=== PATIENT | female | born 1985 | race African-American/Black ===

== ENCOUNTER 2020-01-14 13:14 | Emergency (ER) | payer OTHER ==
[2020-01-14 13:23] VITALS: BMI 18.8
[2020-01-14] MEDS ORDERED: ACETAMINOPHEN 1000 MG/100 ML VIAL (NON FORMULARY) IVPB ONE (14:05)
[2020-01-14] MEDS ORDERED: ONDANSETRON 4 MG/2 ML VIAL IVPUSH ONE (14:05)
[2020-01-14] MEDS ORDERED: SODIUM CHLORIDE 1,000 ML IV STA ×2 (14:05→17:19)
[2020-01-14] MEDS ORDERED: ACETAMINOPHEN INJECTION 100 ML IVPB ONE ×2 (14:10→15:59)
--- NOTE | 2020-01-14 14:26 | PDOC ---
History of Present Illness - General Chief Complaint: Pain Stated Complaint: ABD PAIN Time Seen by Provider: 01/14/20 13:48 Past History - Medical History Allergies/Adverse Reactions: Allergies Allergy/AdvReac Type Severity Reaction Status Date / Time ciprofloxacin [From Cipro] Allergy Severe Swelling Verified 01/17/20 10:09 Home Medications: Ambulatory Orders NK [No Known Home Medication] 01/16/20 COPD: No - Reproductive History Is Patient Now?: No - Psycho-Social/Smoking History Smoking History: Current every day smoker Number of Cigarettes Smoked Daily: 5 Information on smoking cessation initiated: Yes - Substance Abuse Hx (Audit-C & DAST Scrn) How often the patient has a drink containing alcohol: Never Score: In Men: 4 or > Positive; In Women: 3 or > Positive: 0 Screen Result (Pos requires Nsg. Audit-10AR): Negative In the last yr the pt used illegal drug/Rx for NonMed reason: No Score: Yes response is considered Positive: 0 Screen Result (Positive result requires Nsg. DAST-10): Negative Review of Systems - Review of Systems Able to Perform ROS?: Yes Comments:: 01/14/20 21:30 CONSTITUTIONAL: Absent: fever, chills, diaphoresis, generalized weakness, malaise, loss of appetite HEENT: Absent: rhinorrhea, nasal congestion, throat pain, throat swelling, difficulty swallowing, mouth swelling, ear pain, eye pain, visual Changes CARDIOVASCULAR: Absent: chest pain, loss of consciousness, palpitations, irregular heart rate, peripheral edema RESPIRATORY: Absent: cough, shortness of breath, dyspnea with exertion, orthopnea, wheezing, stridor, hemoptysis GASTROINTESTINAL: Present: Abdominal pain, nausea, vomiting and diarrhea Absent: abdominal distension, , constipation, melena, hematochezia GENITOURINARY: Absent: dysuria, frequency, urgency, hesitancy, hematuria, flank pain, genital pain MUSCULOSKELETAL: Absent: myalgia, arthralgia, joint swelling SKIN: Absent: rash, itching, pallor HEMATOLOGIC/IMMUNOLOGIC: Absent: easy bleeding, easy bruising, lymphadenopathy, frequent infections ENDOCRINE: Absent: unexplained weight gain, unexplained weight loss, heat intolerance, cold intolerance NEUROLOGIC: Absent: headache, focal weakness or paresthesias, dizziness, unsteady gait, seizure, mental status changes, bladder or bowel incontinence PSYCHIATRIC: Absent: anxiety, depression, suicidal or homicidal ideation, hallucinations. Is the patient limited Sudanese proficient: No *Physical Exam - Vital Signs Last Vital Signs Temp Pulse Resp BP Pulse Ox 98.5 F 110 H 19 127/72 96 01/14/20 13:17 01/14/20 13:17 01/14/20 13:17 01/14/20 13:17 01/14/20 13:17 - Physical Exam 01/14/20 21:31 GENERAL: Well developed, well nourished. Awake and alert. No acute distress. HEENT: Normocephalic, atraumatic. PERRLA, EOMI. No conjunctival pallor. Sclera are non- icteric. Moist mucous membranes. Oropharynx is clear. NECK: Supple. Full ROM. No JVD. Carotid pulses 2+ and symmetric, without bruits. No thyromegaly. No lymphadenopathy. CARDIOVASCULAR: Regular rate and rhythm. No murmurs, rubs, or gallops. Distal pulses are 2+ and symmetric. PULMONARY: No evidence of respiratory distress. Lungs clear to auscultation bilaterally. No wheezing, rales or rhonchi. ABDOMINAL: Tenderness palpation of the right lower quadrant, suprapubic area with other diffuse abdominal tenderness. Negative Rovsing sign. Soft. Non-tender. Non- distended. No rebound or guarding. No organomegaly. Normoactive bowel sounds. MUSCULOSKELETAL Normal range of motion at all joints. No bony deformities or tenderness. No CVA tenderness. EXTREMITIES: No cyanosis. No clubbing. No edema. No calf tenderness. SKIN: Warm and dry. Normal capillary refill. No rashes. No jaundice. NEUROLOGICAL: Alert, awake, appropriate. Cranial nerves 2-12 intact. No deficits to light touch and temperature in face, upper extremities and lower extremities. No motor deficits in the in face, upper extremities and lower extremities. Normoreflexic in the upper and lower extremities. Normal speech. Toes are down-going bilaterally. Gait is normal without ataxia. PSYCHIATRIC: Cooperative. Good eye contact. Appropriate mood and affect. ED Treatment Course - LABORATORY CBC & Chemistry Diagram: 01/14/20 15:17 01/14/20 15:17 Medical Decision Making - Medical Decision Making 01/14/20 17:27 Patient presents the ER with lower abdominal pain, nausea and diarrhea for the past 4 days. States she was seen at [facility] yesterday and told she had a UTI. She states that this morning her abdominal pain got worse and she was vomiting so she came to the ER for evaluation. She states that she tried taking Cipro at home for her presumed UTI however her face began to swell so she stopped taking it and took a Benadryl with relief of symptoms. A/P: Right lower quadrant pain Broad differential diagnosis including UTI versus Shankar versus appendicitis. Given recent CT scan, will start with ultrasound of the kidney and bladder to rule out Shankar given she had a diagnosis of UTI last night. Scans requested from [facility]. Basic labs repeated. Leukocytosis to 22. Symptoms relieved with offer meds and Zofran. 01/14/20 21:35 Labs received from [facility]. Patient had a leukocytosis 22 last night as well this is unchanged. CT scan reveals equivocal appendicitis? Repeat ultrasound shows no acute kidney pathology. Concern for appendicitis at this time order rescan to rule out appendicitis. The patient is clinically sober, free from distracting injury, appears to have intact insight and judgment and reason and in my opinion has the capacity to make decisions. Patient has a leukocytosis to 22, RLQ pain on exam with questionable equivocal reading for appendicitis at [facility] yesterday. Asked patient to stay for a rescan however patient states she has to go home to get her children as she does not feel safe having left them with her brother. Advised that she has a probable appendicitis and could become severely ill, septic or even by leaving the hospital. She states that she understands and states that she will come back tomorrow at 9 for a repeat scan. Explained to patient if she should have any change in her symptoms return to the ER immediat adwoa Discharge - Discharge Information Problems reviewed: Yes Clinical Impression/Diagnosis: Abdominal pain Qualifiers: Abdominal location: right lower quadrant Qualified Code(s): R10.31 - Right lower quadrant pain Disposition: AGAINST MEDICAL ADVICE - Follow up/Referral - Patient Discharge Instructions - Post Discharge Activity
[2020-01-14 15:24] LABS: BASO % 0.3 % (0-2.0); EOS % 0.7 % (0-4.5); HEMATOCRIT 47.7 % (32.4-45.2); HEMOGLOBIN 15.8 GM/dL (10.7-15.3); LYMPH % 3.7 % (8-40); MCH 32.8 pg (25.7-33.7); MCHC 33.2 g/dl (32.0-36.0); MEAN CELL VOLUME 98.9 fl (80-96); MEAN PLT VOLUME 8.8 fl (7.5-11.1); MONO % 3.8 % (3.8-10.2); NEUT % 91.5 % (42.8-82.8); PLATELET COUNT 193 K/MM3 (134-434); RBC 4.82 M/mm3 (3.60-5.2); RDW 12.8 % (11.6-15.6); WHITE BLOOD COUNT 22.2 K/mm3 (4.0-10.0)
[2020-01-14 15:47] LABS: ANISOCYTOSIS 0; MACROCYTOSIS 0; PLATELET ESTIMATE NORMAL
[2020-01-14 15:52] LABS: ALBUMIN 3.4 g/dl (3.4-5.0); BILIRUBIN,TOTAL 0.6 mg/dL (0.2-1); BLOOD UREA NITROGEN 22.5 mg/dL (7-18); CALCIUM 9.5 mg/dL (8.5-10.1); CREATININE 1.3 mg/dL (0.55-1.3); POTASSIUM 4.4 mmol/L (3.5-5.1); TOT PROT 8.5 g/dl (6.4-8.2)
[2020-01-14 16:39] LABS: EPI CELLS >36 /uL (0-25.1); HCG,QUALITATIVE URINE Negative; HYALINE CASTS 36 /uL (0-3.1); URINE APPEARANCE TURBID; URINE BACTERIA 987 /uL (0-1359); URINE BILIRUBIN 2+ (NEGATIVE); URINE COLOR DK YELLOW; URINE GLUCOSE (UA) NEGATIVE (NEGATIVE); URINE KETONE 1+ (NEGATIVE); URINE LEUK ESTERASE NEGATIVE (NEGATIVE); URINE NITRITE NEGATIVE (NEGATIVE); URINE PROTEIN 2+ (NEGATIVE); URINE WBC 40 /uL (0-25.8)
[2020-01-14 17:05] LABS: URINE RBC 19.1 /uL (0-23.9)
[2020-01-14 19:40] VITALS: BP 122/68; PULSE 86; TEMP 97.8
== END 2020-01-14 20:50 | disposition left against medical advice (07) ==
LOC: JER 13:14
PROC: 3E033NZ Introduction of Analgesics, Hypnotics, Sedatives into Peripheral Vein, Percutaneous Approach (ICD-10-PCS; principal; 2020-01-14)
PROC: 3E033GC Introduction of Other Therapeutic Substance into Peripheral Vein, Percutaneous Approach (ICD-10-PCS; 2020-01-14)
PROC: 3E0337Z Introduction of Electrolytic and Water Balance Substance into Peripheral Vein, Percutaneous Approach (ICD-10-PCS; 2020-01-14)
DX: R10.9 Unspecified abdominal pain (principal)
CPT/HCPCS: 36415; 76775-TC; 76856-TC; 80053; 81003; 83690; 84703; 85025; 87086; 87491; 87591; 96361; 96374; 96375; 99285-25; J0131

== ENCOUNTER 2020-01-16 12:53 | Inpatient (IN) | payer OTHER ==
--- NOTE | 2020-01-16 13:09 | PDOC ---
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
[2020-01-16] MEDS ORDERED: ACETAMINOPHEN 1000 MG/100 ML VIAL (NON FORMULARY) IVPB ONE (13:10)
[2020-01-16] MEDS ORDERED: SODIUM CHLORIDE 1,000 ML IV STA ×2 (13:10→18:34)
--- NOTE | 2020-01-16 13:34 | PDOC ---
History of Present Illness - General Chief Complaint: Pain, Acute Stated Complaint: LWR ABD PAIN Time Seen by Provider: 01/16/20 13:06 History Source: Patient Exam Limitations: No Limitations - History of Present Illness Initial Comments: 01/16/20 13:28 HPI: 34 yo F presenting with RLQ pain, fever, and nausea, seen here 2 days ago and left AMA due to child welfare specialist returning for continued symptoms. Denies fevers or chills, reduced PO intake. Reporting continued RLQ and suprapubic pain. Pain is sharp, constant, non-positional, and had been present for 1 week with consistent severity since last . Denies chest pain, shortness of breath, sore throat. LMP Dec 31, no history of polyps fibroids or cysts, sexually active with one partner, uses condoms consistently. Denies vaginal bleeding, discharge, or pain. Also denies diarrhea, constipation, bloody or dark stools. No dysuria, frequency, foul odors or funny colors. All: Ciprofloxacin Meds: Per chart Past History - Travel History Traveled outside of the country in the last 30 days: No Close contact w/someone who was outside of country & ill: No - Medical History Allergies/Adverse Reactions: Allergies Allergy/AdvReac Type Severity Reaction Status Date / Time ciprofloxacin [From Cipro] Allergy Severe Swelling Verified 01/16/20 14:01 Home Medications: Ambulatory Orders NK [No Known Home Medication] 01/16/20 Asthma: Yes COPD: No - Reproductive History Is Patient Now?: No - Immunization History Immunization Up to Date: Yes - Psycho-Social/Smoking History Smoking History: Current every day smoker Number of Cigarettes Smoked Daily: 5 Information on smoking cessation initiated: No - Substance Abuse Hx (Audit-C & DAST Scrn) How often the patient has a drink containing alcohol: Never Score: In Men: 4 or > Positive; In Women: 3 or > Positive: 0 Screen Result (Pos requires Nsg. Audit-10AR): Negative In the last yr the pt used illegal drug/Rx for NonMed reason: No Score: Yes response is considered Positive: 0 Screen Result (Positive result requires Nsg. DAST-10): Negative Review of Systems - Review of Systems Able to Perform ROS?: Yes Is the patient limited Persian proficient: Yes Constitutional: No: Chills, Diaphoresis, Fever, Weakness HEENTM: No: Recent change in vision, Hearing Loss Respiratory: No: Shortness of Breath Cardiac (ROS): No: Chest Pain, Edema, Irregular Heart Rate, Lightheadedness, Palpitations, Syncope, Chest Tightness ABD/GI: No: Abdominal Distended, Abd. Pain w/ defecation, Constipated, Diarrhea, Nausea, Vomiting : No: Burning, Dysuria, Frequency Musculoskeletal: No: Back Pain, Muscle Pain, Muscle Weakness Integumentary: No: Bruising, Pruritus, Rash Neurological: No: Headache, Numbness, Tingling, Weakness Psychiatric: No: Anxiety, Depression, Stressors, Change in Appetite Endocrine: No: Increased Thirst, Increased Urine, Change in Weight Hematologic/Lymphatic: No: Anemia, Blood Clots, Easy Bleeding All Other Systems: Reviewed and Negative *Physical Exam - Vital Signs Last Vital Signs Temp Pulse Resp BP Pulse Ox 98.7 F 102 H 18 149/100 100 01/16/20 13:08 01/16/20 13:08 01/16/20 13:08 01/16/20 13:08 01/16/20 13:08 - Physical Exam 01/16/20 13:30 Vitals reviewed, notable for mild htn and tachycardia to 100s GEN: Well appearing, appears stated age, NAD, comfortable. AAOx3. HEENT: NCAT, EOMI, PERRL. Sclera anicteric, noninjected. No facial asymmetry. Moist mucous membranes. Normal voice. Trachea midline. CV: RRR, S1/S2, no murmurs / rubs / gallops appreciated. LUNG: CTABL, normal work of breathing. No wheezes, rales, rhonchi. No cough. Speaking full sentences. GI: Soft, TTP RLQ and suprapubically, non-distended, +BS, no guarding, no rebound. +[place]. No masses. EXTREMITIES: 2+ distal pulses. No clubbing / cyanosis / edema. No gross deformity in any extremity. SKIN: Warm, dry, no rashes appreciated, non-jaundiced. PSYCH: Normal mood and affect. Cooperative and appropriate. NEURO: CN grossly intact. Moving all extremities well. Normal strength and sensation grossly. ED Treatment Course - LABORATORY CBC & Chemistry Diagram: 01/16/20 13:40 01/16/20 13:40 Medical Decision Making - Medical Decision Making 01/16/20 13:33 34 yo F presenting with RLQ pain, fever, and nausea, seen here 2 days ago and left AMA due to child welfare specialist returning for continued symptoms. History notable for 1 week of abdominal pain with nausea. Exam notable for stable vitals, RLQ and suprapubic tenderness to palpation. Concerning for appendicitis, diverticulitis, colitis, ureterolithiasis, UTI/Pyelonephritis. - CBC, CMP, Lactate, Coags, T&S, UA, HCG - CTAP - IVF - Ofirmev 1g - NPO (attempted to eat at 10AM, vomited) 01/16/20 15:40 - Improving leukocytosis - Otherwise unremarkable labs - Morphine 2mg - Zofran 4mg 01/16/20 16:44 - CT results in short: small bowel enteritis, colitis, cannot appreciate appendix, 3x1.4x1.1cm area of loculated fluid ?abscess, small volume free fluid in hepatorenal fossa, mesenteric soft tissue stranding within the pelvis ventral ly, diffuse bladder wall thickening, 2.72 left adnexal cyst. - IVF NS @125cc/hr - Zosyn - Microblog sent to on-call surgeon Dr. Diego 01/16/20 17:25 - Spoke with Dr. Diego - IV ABX, IVF, NPO, Admit Med/Surg - Requests repeat CT abdomen / pelvis with oral contrast - Microblog sent to hospitalist team Dispo: Med/Surg Discharge - Discharge Information Problems reviewed: Yes Clinical Impression/Diagnosis: Colitis, Enteritis, Intra-abdominal abscess Abdominal pain Qualifiers: Abdominal location: right lower quadrant Qualified Code(s): R10.31 - Right lower quadrant pain Condition: Stable - Admission Yes - Follow up/Referral - Patient Discharge Instructions - Post Discharge Activity
[2020-01-16] MEDS ORDERED: ACETAMINOPHEN INJECTION 100 ML IVPB ONE (13:49)
[2020-01-16] MEDS ORDERED: morphine CARPU-JECT 2 MG/1 ML DISP.SYRIN IVPUSH ONE (13:54)
[2020-01-16] MEDS ORDERED: ONDANSETRON 4 MG/2 ML VIAL IVPUSH ONE (13:54)
--- NOTE | 2020-01-16 13:54 | PDOC ---
Attending Attestation - Resident Resident Name: Diony Zapata - ED Attending Attestation I have performed the following: I have examined & evaluated the patient, The case was reviewed & discussed with the resident, I agree w/resident's findings & plan - HPI HPI: 01/16/20 13:51 Healthy 34-year-old female presents for persistent lower abdominal pain. Patient was initially seen on 01/12 at [facility] ER, diagnosed with UTI and discharged on Cipro, of which she only took 1 dose and had allergic reaction with facial swelling. Abdominal pain persisted, was seen here on 01/13 and upon review of CT from [facility], appendicitis was equivocal, so repeat CT was recommended but patient had to leave AMA. Patient now returns with persistent and worsening abdominal pain, sharp and localized to the right lower quadrant/suprapubic area, positive associated vomiting and diarrhea, no urinary or vaginal complaints. No history of surgeries, no history of ovarian cysts, LMP was 12/31, monogamous with use of condoms, no history of STI - Physicial Exam PE: 01/16/20 13:52 Afebrile, slight tachycardia Alert seated in stretcher, uncomfortable and in pain No jaundice or pallor, dry mucosa Heart is regular, lungs are clear Abdomen is soft/nondistended. There is tenderness with guarding in the suprapubic and right lower quadrant region, no CVA tenderness, no palpable hernias or masses. - Medical Decision Making 01/16/20 13:53 34-year-old female with progressive right lower quadrant/lower abdominal pain over the last 4 to 5 days, equivocal appendicitis on prior CT and leukocytosis on previous labs, now with peritoneal findings and right lower quadrant/lower abdomen. Presentation concerning for appendicitis, rule out [employer]OR or etiology. Labs, urinalysis CT of the abdomen and pelvis with IV contrast IV fluids, pain control, nausea control Reassess Discharge - Discharge Information Problems reviewed: Yes Clinical Impression/Diagnosis: Abdominal pain Qualifiers: Abdominal location: right lower quadrant Qualified Code(s): R10.31 - Right lower quadrant pain - Follow up/Referral - Patient Discharge Instructions - Post Discharge Activity
[2020-01-16 14:03] LABS: BASO % 0.6 % (0-2.0); EOS % 1.6 % (0-4.5); HEMATOCRIT 43.5 % (32.4-45.2); HEMOGLOBIN 14.9 GM/dL (10.7-15.3); LYMPH % 14.2 % (8-40); MCH 33.7 pg (25.7-33.7); MCHC 34.2 g/dl (32.0-36.0); MEAN CELL VOLUME 98.5 fl (80-96); MEAN PLT VOLUME 8.4 fl (7.5-11.1); MONO % 14.6 % (3.8-10.2); PLATELET COUNT 199 K/MM3 (134-434); RBC 4.41 M/mm3 (3.60-5.2); RDW 12.5 % (11.6-15.6); WHITE BLOOD COUNT 10.5 K/mm3 (4.0-10.0)
[2020-01-16] MEDS ORDERED: MORPHINE SULFATE 2 MG/ML VIAL ONE (14:11)
[2020-01-16 14:38] LABS: BILIRUBIN,TOTAL 0.6 mg/dL (0.2-1); BLOOD UREA NITROGEN 11.5 mg/dL (7-18); CALCIUM 9.1 mg/dL (8.5-10.1); CREATININE 0.7 mg/dL (0.55-1.3); MAGNESIUM 1.7 mg/dL (1.8-2.4); POTASSIUM 4.1 mmol/L (3.5-5.1); TOT PROT 7.3 g/dl (6.4-8.2)
[2020-01-16 15:20] LABS: ANISOCYTOSIS 0; MACROCYTOSIS 0; PLATELET ESTIMATE NORMAL
[2020-01-16 15:37] LABS: EPI CELLS >36 /uL (0-25.1); HYALINE CASTS 10 /uL (0-3.1); PH,URINE 6.5 (5.0-8.0); URINE APPEARANCE CLEAR; URINE BACTERIA 213 /uL (0-1359); URINE BILIRUBIN NEGATIVE (NEGATIVE); URINE COLOR DK YELLOW; URINE GLUCOSE (UA) NEGATIVE (NEGATIVE); URINE KETONE TRACE (NEGATIVE); URINE LEUK ESTERASE TRACE (NEGATIVE); URINE NITRITE NEGATIVE (NEGATIVE); URINE PROTEIN 1+ (NEGATIVE); URINE RBC 23 /uL (0-23.9); URINE UROBILINOGEN 0.2 mg/dL (0.2-1.0); URINE WBC 46 /uL (0-25.8)
[2020-01-16 15:49] LABS: HCG,QUALITATIVE URINE Negative
[2020-01-16] MEDS ORDERED: PIPERACILLIN/TAZOB 3.375 GM 3.375 GM in DEXTROSE 5%-WATER - 50 ML IVPB ONE (16:36)
[2020-01-16] MEDS: SODIUM CHLORIDE 1,000 ML IV SCH (17:02)
[2020-01-16] MEDS ORDERED: PIPERACILLIN/TAZOB 3.375 GM 3.375 GM/50 ML BAG IVPB ONE (17:06)
[2020-01-16] MEDS ORDERED: MORPHINE SULFATE 2 MG/ML VIAL IVPUSH PRN (18:35)
[2020-01-16] MEDS ORDERED: PIPERACILLIN/TAZOB 4.5 GM 4.5 GM in DEXTROSE 5%-WATER 100 ML IVPB SCH (18:45)
--- NOTE | 2020-01-16 18:53 | HP ---
Admitting History and Physical - Past Medical History ...LMP: 01/01/20 ...: No - Smoking History Smoking history: Current every day smoker Aproximately how many cigarettes per day: 5 Home Medications - Allergies Allergies/Adverse Reactions: Allergies Allergy/AdvReac Type Severity Reaction Status Date / Time ciprofloxacin [From Cipro] Allergy Severe Swelling Verified 01/16/20 14:01 - Home Medications Home Medications: Ambulatory Orders NK [No Known Home Medication] 01/16/20 Physical Examination Vital Signs: Vital Signs Temperature 98.7 F 01/16/20 13:08 Pulse Rate 102 H 01/16/20 13:08 Respiratory Rate 18 01/16/20 13:08 Blood Pressure 149/100 01/16/20 13:08 O2 Sat by Pulse Oximetry (%) 98 01/16/20 18:21 Labs: CBC, BMP 01/16/20 13:40 01/16/20 13:40
--- NOTE | 2020-01-16 19:32 | PN ---
Teaching Attending Note Name of Resident: Delroy Floyd ATTENDING PHYSICIAN STATEMENT I saw and evaluated the patient. I reviewed the resident's note and discussed the case with the resident. I agree with the resident's findings and plan as documented. SUBJECTIVE: Patient is a 34-year-old woman with no reported PMH of Tobacco use who presents with persistent lower abdominal pain for 4 days. Patient was initially seen on 01/13/20 at [facility] ER, diagnosed with UTI and discharged on Cipro, of which she only took 1 dose and had allergic reaction with facial swelling. Abdominal pain persisted, was seen here on 01/14/20 and upon review of CT from [facility], appendicitis was equivocal, so repeat CT was recommended but patient had to leave AMA. Patient now returns with persistent and worsening abdominal pain, sharp and localized to the right lower quadrant/suprapubic area, positive associated vomiting and diarrhea, no urinary or vaginal complaints. No history of surgeries, no history of ovarian cysts, LMP was 12/31, monogamous with use of condoms, no history of STI. Patient denies chest pain, shortness of breath, headache, palpitations, dizziness, fever, chills, nausea, vomiting, constipation, dysuria, frequency, urgency, melena, hematochezia or hematuria. Denies alcohol, tobacco or illicit drug use. No sick contacts or recent travels. Family history - mother had ID. OBJECTIVE: Alert Vital Signs Period Temp Pulse Resp BP Sys/Gonzales Pulse Ox Last 24 Hr 98.7 F 65-102 18-20 98-149/60-100 98-100 HEENT: No Jaundice, eye redness or discharge, PERRLA, EOMI. Normocephalic, atraumatic. External ears are normal and hearing is grossly intact. No nasal discharge. Neck: Supple, nontender. No palpable adenopathy or thyromegaly. No JVD Chest: Good effort. Clear to auscultation and percussion. Heart: Regular. No S3, rub or murmur Abdomen: Not distended, soft, Suprapubic and RLQ tenderness and no HSM. No r ebound or guarding. Normal bowel sounds. Ext: Peripheral pulses intact. No leg edema. Skin: Warm and dry. No petechiae, rash or ecchymosis. Neuro: Alert. Oriented x3. CN 2-12 grossly intact. Sensation grossly intact in all four extremities and DTR are symmetric. Psych: Appropriate mood and affect. Good insight. Home Medications Medication Instructions Recorded NK [No Known Home Medication] 01/16/20 Abnormal Lab Results 01/16/20 01/16/20 01/16/20 13:40 13:40 15:15 WBC 10.5 H MCV 98.5 H Monocytes % 14.6 H D Monocytes % (Manual) 17 H D Sodium 134 L Anion Gap 7 L Magnesium 1.7 L Albumin 3.0 L Urine Protein 1+ H Urine Ketones Trace H Current Medications Generic Name Dose Route Start Last Admin Trade Name Freq PRN Reason Stop Dose Admin Sodium Chloride 1,000 mls @ 125 mls/hr 01/16/20 16:45 01/16/20 17:02 Normal Saline - IV 125 mls/hr ASDIR DAVON Administration Piperacillin Sod/Tazobactam 100 mls @ 200 mls/hr 01/16/20 18:45 Sod 4.5 gm/ Dextrose IVPB Q8H-IV DAVON Protocol Famotidine/Sodium Chloride 20 mg in 50 mls @ 100 mls/hr 01/16/20 22:00 Pepcid 20 Mg Premixed Ivpb - IVPB BID DAVON Piperacillin Sod/Tazobactam 100 mls @ 200 mls/hr 01/17/20 02:00 Sod 4.5 gm/ Dextrose IVPB 01/17/20 18:29 Q8H-IV DAVON Protocol Morphine Sulfate 2 mg 01/16/20 18:35 Morphine Sulfate IVPUSH Q6H PRN PAIN LEVEL 6-10 Ondansetron HCl 4 mg 01/16/20 18:34 Zofran Injection IVPUSH Q6H PRN NAUSEA ASSESSMENT AND PLAN: 1. Colitis/Enteritis and ?Pelvic abscess - CT abdomen/pelvis with IV contrast shows evidence of enteritis, colitis and possible right lower pelvic abscess. Sepsis workup done, patient NPO and started on IV Zosyn and IV NS. STI panel was negative. Will consult GI, Surgery and [facility]. Getting IV MgSO4. Stool for culture, Ova&Parasites, C. Difficile toxin and Novovirus if diarrhea persists. Viral testing for COVID-19 ordered and patient placed on airborne, droplet and contact isolation. EKG shows NSR at 72/minute and QTc [address]-T wave changes. Initial troponin is negative. 2. Hypoalbuminemia - Possibly due to combined effects of malnutrition and inflammation associated with comorbid conditions. Will ensure adequate dietary protein intake and also consult improvement analyst. 3. Tobacco Use Counseled on risks associated with tobacco use. We will provide patient all the necessary assistance to facilitate smoking cessation and prescribe Nicotine patch. 4. DVT prophylaxis - Lovenox 40 mg SQ q 24 hours. 5. Advance directives - Full code
[2020-01-16] MEDS ORDERED: FAMOTIDINE 20 MG/50 ML IVPB 20 MG/50 ML MG IVPB ONE ×2 (22:59→23:08)
[2020-01-17] MEDS ORDERED: MORPHINE SULFATE 2 MG/ML VIAL IVPUSH ONE (00:31)
--- NOTE | 2020-01-17 00:49 | HP ---
CHIEF COMPLAINT: lower abd pain w/a NVD PCP: HISTORY OF PRESENT ILLNESS: 35F w/ no pmh presents to [facility] w/ complaint of 6days(since ~Thursday) of severe cramping diffuse lower abdominal abd. Has associated nausea, vomiting. Has vomiting immediately after eating. Had mild bloody streaks on Thursday, which has since resolved. Feels thirsty, and has appetite. Has daily diarrhea. 5days prior, pain migrated from lower abd to to RLQ. Denies fever, chills, CP, burning pain with urination. Pt was seen at [facility] 2day prior with similiar RLQ abdominal pain, but declined admission d/t to the need to arrange childcare. No history of diffuse crampy diarrhea. Denies h/o EGD, colonoscopy. No IBD or colorectal CA in family. Sexually active, uses condoms consistently. Denies abnormal vaginal discharge. LMP 01/01/20. Menstruation starts every 14-16th of the month. ER course was notable for: -Tmax 98.7F, HR 102 --> 65, 122/68 -WBC 22.2 --> 10.5 -Cr 1.3 -->0.7 -Mg2+ 1.7 -McBurneys Pt positive -US kidneys(01/14/20): essentially negative study. No evidence of hydronephrosis, renal masses, renal calculi -CT A/P(01/16/20): several small bowel loops within the central and right lateral thirds of the pelvis demonstrate concentric continuous wall thickening suggestive of enteritis which may be infectious or inflammatory in nature. Follow-up CT w/ oral contrast may be considered. There is also possible subtle concentric rectosigmoid colonic wall thickening -?associated acute colitis. Area of loculated fluid(3 x 1.4 x1.1cm) is seen within the Right lower pelvis posteriorly with possible rim enhancement. Could be due to a small abscess. Small amount of pelvic free fluid seen, as well as a small amount of free fluid within the hepatorenal fossa. Mesensteric soft tissue stranding is seen within the pelvis ventrally consistent with inflammatory change. There is apparent diffuse urinary bladder wall thickening which may be on the basis of acute chronic cystitis. 2.72cm Left adnexal cyst. -Diego: ivf, abx, NPO; rpt CT A/P w/ oral contrast -NS 1L, zosyn 3.375, zofran, ofirmev, morphine 2mg Recent Travel: denies PAST MEDICAL HISTORY: none PAST SURGICAL HISTORY: none Social History: Sm[employer] daily. former 2ppd(2016 -2019). 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 two children: 9y/o, 14y/0 Allergies ciprofloxacin [From Cipro] Allergy (Severe, Verified 01/16/20 14:01) Swelling HOME MEDICATIONS: Home Medications Medication Instructions Recorded NK [No Known Home Medication] 01/16/20 REVIEW OF SYSTEMS CONSTITUTIONAL: Absent: fever, chills, diaphoresis, generalized weakness, malaise, loss of appetite, weight change HEENT: Absent: rhinorrhea, nasal congestion, throat pain, throat swelling, difficulty swallowing, mouth swelling, ear pain, eye pain, visual changes CARDIOVASCULAR: Absent: chest pain, syncope, palpitations, irregular heart rate, lightheadedness, peripheral edema RESPIRATORY: Absent: cough, shortness of breath, dyspnea with exertion, orthopnea, wheezing, stridor, hemoptysis GASTROINTESTINAL: lower and RLQ abdominal pain, nausea, vomiting, diarrhea, Absent: abdominal distension, constipation, melena, hematochezia GENITOURINARY: Absent: dysuria, frequency, urgency, hesitancy, hematuria, flank pain, genital pain MUSCULOSKELETAL: Absent: myalgia, arthralgia, joint swelling, back pain, neck pain SKIN: Absent: rash, itching, pallor HEMATOLOGIC/IMMUNOLOGIC: Absent: easy bleeding, easy bruising, lymphadenopathy, frequent infections ENDOCRINE: Absent: unexplained weight gain, unexplained weight loss, heat intolerance, cold intolerance NEUROLOGIC: Absent: headache, focal weakness or paresthesias, dizziness, unsteady gait, seizure, mental status changes, bladder or bowel incontinence PSYCHIATRIC: Absent: anxiety, depression, suicidal or homicidal ideation, hallucinations. PHYSICAL EXAMINATION Vital Signs - 24 hr 01/16/20 01/16/20 01/16/20 13:08 18:21 18:58 Temperature 98.7 F Pulse Rate 102 H Pulse Rate [ 65 Radial] Respiratory 18 20 Rate Blood Pressure 149/100 Blood Pressure 98/60 [Right Arm] O2 Sat by Pulse 100 98 100 Oximetry (%) GENERAL: Awake, alert, and fully oriented, in mild distress. Thin-appearing HEAD: Normal with no signs of trauma. EYES: sclera anicteric, conjunctiva clear. No lid lag. EARS, NOSE, THROAT: Ears normal, nares patent, oropharynx clear without exudates. Moist mucous membranes. NECK: Normal range of motion, supple without lymphadenopathy, JVD, or masses. LUNGS: Breath sounds equal, clear to auscultation bilaterally. No wheezes, and no crackles. No accessory muscle use. HEART: Regular rate and rhythm, normal S1 and S2 without murmur, rub or gallop. ABDOMEN: Soft, not distended, hypoactive bowel sounds, TTP of suprapubic region, +McBurney's, neg Rovsing's, negative rebound MUSCULOSKELETAL: Normal range of motion at all joints. No bony deformities or tenderness. UPPER EXTREMITIES: 2+ pulses, warm, well-perfused. No cyanosis. No clubbing. No peripheral edema. LOWER EXTREMITIES: 2+ pulses, warm, well-perfused. No calf tenderness. No peripheral edema. NEUROLOGICAL: Normal speech. Moving upper and lower extremities w/o issues. No issues with gait SKIN: Warm, dry, normal turgor, no rashes or lesions noted, normal capillary refill. Laboratory Results - last 24 hr 01/16/20 01/16/20 01/16/20 13:40 13:40 13:40 WBC 10.5 H RBC 4.41 Hgb 14.9 Hct 43.5 MCV 98.5 H MCH 33.7 MCHC 34.2 RDW 12.5 Plt Count 199 MPV 8.4 Absolute Neuts (auto) 7.2 Neutrophils % 69.0 D Neutrophils % (Manual) 64.7 Band Neutrophils % 0.0 Lymphocytes % 14.2 D Lymphocytes % (Manual) 12.7 D Monocytes % 14.6 H D Monocytes % (Manual) 17 H D Eosinophils % 1.6 D Eosinophils % (Manual) 2.0 Basophils % 0.6 Basophils % (Manual) 0.0 Myelocytes % (Man) 1 D Promyelocytes % (Man) 0 Blast Cells % (Manual) 0 Nucleated RBC % 0 Metamyelocytes 0 Hypochromia 0 Platelet Estimate Normal Polychromasia 0 Poikilocytosis 0 Anisocytosis 0 Microcytosis 0 Macrocytosis 0 Sodium 134 L Potassium 4.1 Chloride 104 Carbon Dioxide 23 Anion Gap 7 L BUN 11.5 Creatinine 0.7 Est GFR (CKD-EPI)AfAm 130.10 Est GFR (CKD-EPI)NonAf 112.25 Random Glucose 96 Lactic Acid 1.0 Calcium 9.1 Magnesium 1.7 L Total Bilirubin 0.6 AST 18 ALT 13 Alkaline Phosphatase 103 Total Protein 7.3 Albumin 3.0 L Urine Color Urine Appearance Urine pH Ur Specific [place] Urine Protein Urine Glucose (UA) Urine Ketones Urine Blood Urine Nitrite Urine Bilirubin Urine Urobilinogen Ur Leukocyte Esterase Urine WBC (Auto) Urine RBC (Auto) Urine Casts (Auto) U Epithel Cells (Auto) U Sm Round Cell (Auto) Urine Bacteria (Auto) Urine HCG, Qual Blood Type Antibody Screen 01/16/20 01/16/20 13:40 15:15 WBC RBC Hgb Hct MCV MCH MCHC RDW Plt Count MPV Absolute Neuts (auto) Neutrophils % Neutrophils % (Manual) Band Neutrophils % Lymphocytes % Lymphocytes % (Manual) Monocytes % Monocytes % (Manual) Eosinophils % Eosinophils % (Manual) Basophils % Basophils % (Manual) Myelocytes % (Man) Promyelocytes % (Man) Blast Cells % (Manual) Nucleated RBC % Metamyelocytes Hypochromia Platelet Estimate Polychromasia Poikilocytosis Anisocytosis Microcytosis Macrocytosis Sodium Potassium Chloride Carbon Dioxide Anion Gap BUN Creatinine Est GFR (CKD-EPI)AfAm Est GFR (CKD-EPI)NonAf Random Glucose Lactic Acid Calcium Magnesium Total Bilirubin AST ALT Alkaline Phosphatase Total Protein Albumin Urine Color Dk yellow Urine Appearance Clear Urine pH 6.5 D Ur Specific [place] 1.027 Urine Protein 1+ H Urine Glucose (UA) Negative Urine Ketones Trace H Urine Blood Negative Urine Nitrite Negative Urine Bilirubin Negative Urine Urobilinogen 0.2 Ur Leukocyte Esterase Trace Urine WBC (Auto) 46 Urine RBC (Auto) 23 Urine Casts (Auto) 10 U Epithel Cells (Auto) >36 U Sm Round Cell (Auto) Urine Bacteria (Auto) 213 Urine HCG, Qual Negative Blood Type O POSITIVE Antibody Screen Negative ASSESSMENT/PLAN: 35F w/ no pmh presents to [facility] w/ complaint of 6days(since ~Thursday) of severe cramping diffuse lower abdominal abd that has migrated to RLQ. Has a ssociated nausea, vomiting, diarrhea. Labs notable for leukocytosis(22.2 --> 10.5), improved Cr(1.3 --> 0.7). CT findings suggestive of an intraperitoneal abscess(3 x 1.4 x1.1cm) w/a free fluid in the pelvis and hepatorenal fossa; inflammatory findings of the small intestines and colon. Admitted for intraabdominal abscess, possibly 2/2 to perforated appendicitis #sepsis 2/2 intraabdominal infection #intraabdominal fluid collection --likely abscess, possibly perforated appendicitis #wall thickening of small bowel loops and rectosigmoid colon --likely 2/2 intraabdominal infection; less likely isolated entercolitis > Tmax 98.7F, HR 102 > WBC 22.2(01/14/20) --> 10.5 > CT A/P:several small bowel loops within the central and right lateral thirds of the pelvis demonstrate concentric continuous wall thickening suggestive of enteritis which may be infectious or inflammatory in nature. Follow-up CT w/ oral contrast may be considered. There is also possible subtle concentric rectosigmoid colonic wall thickening -?associated acute colitis. Area of loculated fluid(3 x 1.4 x1.1cm) is seen within the Right lower pelvis pos teriorly with possible rim enhancement. Could be due to a small abscess. Small amount of pelvic free fluid seen, as well as a small amount of free fluid within the hepatorenal fossa. Mesensteric soft tissue stranding is seen within the pelvis ventrally consistent with inflammatory change. There is apparent diffuse urinary bladder wall thickening which may be on the basis of acute chronic cystitis. 2.72cm Left adnexal cyst. > rpt CT w/ ORAL contrast --pending > trachomatis --pending > gonorrhoeae --pending - pain regimen: --morphine 2mg q6h PRN - zofran PRN - IV abx: --zosyn day 1 - ID consult(Arnie): --recs pending - Surgery consult(Johnathon): --ivf, abx, NPO; rpt CT A/P w/ oral contrast #diarrhea --likely 2/2 intraabdominal infection; will r/o other etiologies > Stool Cx --pending > Cdiff --pending #BRIAN --resolving from 2d prior > Cr 1.3 -->0.7 > US kidneys(01/14/20): essentially negative study. No evidence of hydronephrosis, renal masses, renal calculi - mIVF FEN - NPO - NS @125 DVT PPX: - SCDs Family Medical History Family History: As Documented Family Hx Cardiac Disorders: Mother ( from [place]) Other Family History: no history of colorectal CA, no history of IBD Visit type - Emergency Visit Emergency Visit: Yes ED Registration Date: 01/16/20 Care time: The patient presented to the Emergency Department on the above date and was hospitalized for further evaluation of their emergent condition. - New Patient This patient is new to me today: Yes Date on this admission: 01/17/20 - Critical Care Critical Care patient: No ATTENDING PHYSICIAN STATEMENT I saw and evaluated the patient. I reviewed the resident's note and discussed the case with the resident. I agree with the resident's findings and plan as documented. SUBJECTIVE: OBJECTIVE: ASSESSMENT AND PLAN:
[2020-01-17] MEDS: FAMOTIDINE 20 MG/50 ML IVPB 20 MG/50 ML MG IVPB SCH ×3 (01:42→21:43)
[2020-01-17] MEDS ORDERED: PIPERACILLIN/TAZOBACTAM 4.5 GM VIAL IVPB ONE ×2 (01:46→10:04)
[2020-01-17] MEDS ORDERED: DEXTROSE 5%-WATER 100 ML IVPB ONE ×2 (01:46→10:04)
[2020-01-17] MEDS: MORPHINE SULFATE 2 MG/ML VIAL IVPUSH PRN ×4 (01:49→23:20)
[2020-01-17] MEDS: PIPERACILLIN/TAZOB 4.5 GM 4.5 GM in DEXTROSE 5%-WATER 100 ML IVPB SCH ×2 (01:55→10:06)
[2020-01-17 08:04] LABS: BASO % 0.4 % (0-2.0); HEMATOCRIT 34.7 % (32.4-45.2); HEMOGLOBIN 11.7 GM/dL (10.7-15.3); LYMPH % 15.2 % (8-40); MCH 33.3 pg (25.7-33.7); MCHC 33.7 g/dl (32.0-36.0); MEAN CELL VOLUME 98.6 fl (80-96); MEAN PLT VOLUME 8.3 fl (7.5-11.1); MONO % 20.4 % (3.8-10.2); PLATELET COUNT 175 K/MM3 (134-434); RBC 3.52 M/mm3 (3.60-5.2); RDW 12.7 % (11.6-15.6); WHITE BLOOD COUNT 6.9 K/mm3 (4.0-10.0)
[2020-01-17 08:08] LABS: PROTHROMBIN TIME (PATIENT) 11.8 SEC (9.7-13.0)
[2020-01-17 08:20] LABS: ALBUMIN 2.2 g/dl (3.4-5.0); BILIRUBIN,TOTAL 0.5 mg/dL (0.2-1); BLOOD UREA NITROGEN 5.2 mg/dL (7-18); CALCIUM 7.4 mg/dL (8.5-10.1); CREATININE 0.5 mg/dL (0.55-1.3); MAGNESIUM 1.5 mg/dL (1.8-2.4); POTASSIUM 3.2 mmol/L (3.5-5.1)
[2020-01-17 08:21] LABS: TOT PROT 4.9 g/dl (6.4-8.2)
[2020-01-17] MEDS: SODIUM CHLORIDE 1,000 ML IV SCH ×3 (09:33→21:44)
[2020-01-17] MEDS: ONDANSETRON 4 MG/2 ML VIAL IVPUSH PRN (10:06)
--- NOTE | 2020-01-17 10:38 | EKG ---
Test Reason : Blood Pressure : / mmHG Vent. Rate : 072 BPM Atrial Rate : 072 BPM P-R Int : 178 ms QRS Dur : 084 ms QT Int : 388 ms P-R-T Axes : 079 076 054 degrees QTc Int : 424 ms NORMAL SINUS RHYTHM NORMAL ECG NO PREVIOUS ECGS AVAILABLE Confirmed by Robson Farmer MD ([id number]) on 01/17/2020 10:36:54 AM Referred By: Confirmed By:Robson Farmer MD
[2020-01-17 10:48] LABS: ANISOCYTOSIS 0; MACROCYTOSIS 0; PLATELET ESTIMATE NORMAL
--- NOTE | 2020-01-17 10:50 | CONSULT ---
<Germain Hanks - Last Filed: 01/17/20 10:52> - Consultation REQUESTING PROVIDER: CONSULT REQUEST: We have been asked to surgically evaluate this patient for rlq abscess PCP:Jc Gonzalez NP HISTORY OF PRESENT ILLNESS: 35 y/o F w/ no significant PMHx a/w abdo pain. Pt reports she began having "cramping" abdominal pain since last Thursday/Thursday. Pt reports pain initially began in her lower abdomen/umbilicus and after 2 days moved to her rlq. Endorses associated nausea and vomiting (nonbilious/nonbloody) as well as severe diarrhea. Reports she was seen at [facility] on Thursday and discharged with antibiotics for a uti. States she had an allergic reaction to the antibiotics (facial swelling) and only took one dose. Denies fever, chills, CP, burning pain with urination. Pain has currently improved. Surgery consulted for further evaluation. PMHx: denies PSHx: denies Home Medications Medication Instructions Recorded NK [No Known Home Medication] 01/16/20 Allergies Allergy/AdvReac Type Severity Reaction Status Date / Time ciprofloxacin [From Cipro] Allergy Severe Swelling Verified 01/17/20 10:09 REVIEW OF SYSTEMS: CONSTITUTIONAL: Absent: fever, chills CARDIOVASCULAR: Absent: chest pain, syncope RESPIRATORY: Absent: cough, shortness of breath GASTROINTESTINAL: (+)abdominal pain, (-)abdominal distension, (+)nausea, (+)vomiting, (+)diarrhea GENITOURINARY: Absent: dysuria, frequency, urgency, hesitancy, hematuria, flank pain, genital pain PHYSICAL EXAM: GENERAL: Awake, alert, and fully oriented, in no acute distress. HEAD: Normal with no signs of trauma. LUNGS: No accessory muscle use on RA HEART: Regular rate and rhythm. ABDOMEN: Soft, + ttp in rlq, not distended, hypoactive bowel sounds, no guarding, no rebound LOWER EXTREMITIES: well-perfused. No peripheral edema. Vital Signs Temperature 98.0 F 01/17/20 06:51 Pulse Rate 76 01/17/20 06:51 Respiratory Rate 18 01/17/20 06:51 Blood Pressure 97/68 01/17/20 06:51 O2 Sat by Pulse Oximetry (%) 99 01/17/20 06:51 Lab Results WBC 6.9 K/mm3 (4.0-10.0) 01/17/20 07:11 RBC 3.52 M/mm3 (3.60-5.2) L 01/17/20 07:11 Hgb 11.7 GM/dL (10.7-15.3) 01/17/20 07:11 Hct 34.7 % (32.4-45.2) D 01/17/20 07:11 MCV 98.6 fl (80-96) H 01/17/20 07:11 MCHC 33.7 g/dl (32.0-36.0) 01/17/20 07:11 RDW 12.7 % (11.6-15.6) 01/17/20 07:11 Plt Count 175 K/MM3 (134-434) 01/17/20 07:11 INR 1.00 (0.83-1.09) 01/17/20 07:11 Sodium 142 mmol/L (136-145) 01/17/20 07:11 Potassium 3.2 mmol/L (3.5-5.1) L 01/17/20 07:11 Chloride 114 mmol/L (98-107) H 01/17/20 07:11 Carbon Dioxide 22 mmol/L (21-32) 01/17/20 07:11 Anion Gap 6 MMOL/L (8-16) L 01/17/20 07:11 BUN 5.2 mg/dL (7-18) L 01/17/20 07:11 Creatinine 0.5 mg/dL (0.55-1.3) L 01/17/20 07:11 Random Glucose 78 mg/dL (74-106) 01/17/20 07:11 Calcium 7.4 mg/dL (8.5-10.1) L 01/17/20 07:11 Blood Type O POSITIVE 01/16/20 13:40 Antibody Screen Negative 01/16/20 13:40 A/P: 35 y/o F w/ no significant PMHx a/w abdo pain. Pt reports she began having "cramping" abdominal pain. Ct scan with multiple findings, enteritis and possibly colitis, ? abscess in rlq pt with concern for ruptured appendicitis -ct scan with contrast ordered - will follow up scan -continue npo, ivf -monitor vs -continue iv abx d/w attending Dr Diego <Barrington Diego - Last Filed: 01/20/20 10:34> - Consultation Attending Surgeon: I personally saw and examined the patient. My examination reveals a patient with abdominal pain. I discussed the case with the surgical PA and agree with their findings and plan of care with any exceptions as noted. ~ Barrington Diego MD, FACS
--- NOTE | 2020-01-17 12:23 | CON.ID ---
Consult Consult Specialty:: infectious diseases Referred by:: hospitalist Reason for Consultation:: abd pain - History of Present Illness Chief Complaint: abd pain History of Present Illness: 35 y/o F w/ no significant PMHx a/w abdo pain. Pt reports she began having "cramping" abdominal pain since last Thursday/Thursday. Pt reports pain initially began in her lower abdomen/umbilicus and after 2 days moved to her rlq. Endorses associated nausea and vomiting as well as severe diarrhea. Reports she was seen at [facility] on Thursday and discharged with antibiotics for a uti. States she had an allergic reaction to the antibiotics (facial swelling) and only took one dose. Denies fever, chills, CP, burning pain with urination. Pain has currently improved. Surgery consulted for further evaluation. currently abd pain pain slightly better patient got a ct scan of the abd and now is going for ct scan with contrast - History Source History Provided By: Patient Limitations to Obtaining History: No Limitations - Past Medical History ...LMP: 01/01/20 ...: No - Smoking History Smoking history: Current every day smoker Aproximately how many cigarettes per day: 5 Home Medications - Allergies Allergies/Adverse Reactions: Allergies Allergy/AdvReac Type Severity Reaction Status Date / Time ciprofloxacin [From Cipro] Allergy Severe Swelling Verified 01/17/20 10:09 - Home Medications Home Medications: Ambulatory Orders NK [No Known Home Medication] 01/16/20 Family Medical History Family Hx Cardiac Disorders: Mother ( from [place]) Other Family History: no history of colorectal CA, no history of IBD Review of Systems - Review of Systems Constitutional: reports: No Symptoms Eyes: reports: No Symptoms HENT: reports: No Symptoms Neck: reports: No Symptoms Cardiovascular: reports: No Symptoms Respiratory: reports: No Symptoms Gastrointestinal: reports: Abdominal Pain, Diarrhea, Vomiting Genitourinary: reports: No Symptoms Integumentary: reports: No Symptoms Neurological: reports: No Symptoms Endocrine: reports: No Symptoms Hematology/Lymphatic: reports: No Symptoms Psychiatric: reports: No Symptoms Physical Exam Vital Signs: Vital Signs Temperature 98.2 F 01/17/20 10:00 Pulse Rate 54 L 01/17/20 10:00 Respiratory Rate 20 01/17/20 10:00 Blood Pressure 110/53 L 01/17/20 10:00 O2 Sat by Pulse Oximetry (%) 98 09/01/20 10:00 Constitutional: Yes: Calm, Mild Distress HENT: Yes: Atraumatic, Normocephalic Neck: Yes: Supple, Trachea Midline Cardiovascular: Yes: Regular Rate and Rhythm Respiratory: Yes: Regular, CTA Bilaterally Gastrointestinal: Yes: Soft, Hypoactive Bowel Sounds, Tenderness Musculoskeletal: Yes: WNL Extremities: Yes: WNL Neurological: Yes: Alert, Oriented Psychiatric: Yes: Alert, Oriented Labs: CBC, BMP 01/17/20 07:11 01/17/20 07:11 Imaging - Results Chest X-ray: Report Reviewed, Image Reviewed Cat Scan: Report Reviewed, Image Reviewed Assessment/Plan 35F w/ no pmh presents w/ complaint of 6days of severe cramping diffuse lower abdominal abd that has migrated to RLQ. Has associated nausea, vomiting, diarrhea.. sepsis intabd collection colitis abd pain plan stool studies repeat ct scan with contrast surgery on case zosyn await for all results rest as per the team
[2020-01-17] MEDS ORDERED: DEXTROSE 5%-WATER - 50 ML IVPB ONE (17:23)
[2020-01-17] MEDS ORDERED: PIPERACILLIN/TAZOBACTAM 3.375 GM VIAL IVPB ONE (17:23)
--- NOTE | 2020-01-17 17:25 | PN ---
Physical Exam: SUBJECTIVE: Patient seen and examined OBJECTIVE: Patient is a 34 year old female with no significant past medical history. She presents to the ED on 01/16/2020 for severe cramping diffuse lower abdominal pain. Has associated nausea, vomiting. Has vomiting immediately after eating. Pt was seen at [facility] 2day prior with similiar RLQ abdominal pain, but declined admission d/t to the need to arrange childcare. imaging: abd/pelvis with contrast 01/17/2020: dilated small bowel loops with moderate circumferential wall thickening most pronounced at the distal ileum. findings suggestive of enteritis mostly likely infectious or inflammatory. possible partial obstruction as contrast visualized at the level of the descending colon. previously noted focus of fluid within the right lower pelvis thought to poss represent a small abscess is not significantly changed compared to the prior study. moderate ascites with mesenteric edema not significant changed. left adnexal cyst not sign. changed. Vital Signs Period Temp Pulse Resp BP Sys/Gonzales Pulse Ox Last 24 Hr 97.8 F-98.6 F 51-76 18-20 86-122/45-68 98-100 GENERAL: The patient is awake, alert, and fully oriented, in no acute distress. HEAD: Normal with no signs of trauma. EYES: PERRL, extraocular movements intact, sclera anicteric, conjunctiva clear. No ptosis. ENT: Ears normal, nares patent, oropharynx clear without exudates, moist mucous membranes. NECK: Trachea midline, full range of motion, supple. LUNGS: Breath sounds equal, clear to auscultation bilaterally, no wheezes HEART: Regular rate and rhythm ABDOMEN: Soft, mildly distended, nontender, normoactive bowel sounds EXTREMITIES: no edema. NEUROLOGICAL: Normal speech, gait not observed. PSYCH: Normal mood, normal affect. SKIN: Warm, dry, normal turgor, no rashes or lesions noted Laboratory Results - last 24 hr 01/16/20 01/17/20 01/17/20 18:00 07:11 07:11 WBC 6.9 RBC 3.52 L Hgb 11.7 Hct 34.7 D MCV 98.6 H MCH 33.3 MCHC 33.7 RDW 12.7 Plt Count 175 MPV 8.3 Absolute Neuts (auto) 4.3 Neutrophils % 63.0 Neutrophils % (Manual) 64.0 Band Neutrophils % 0.0 Lymphocytes % 15.2 Lymphocytes % (Manual) 19.0 D Monocytes % 20.4 H Monocytes % (Manual) 15 H Eosinophils % 1.0 Eosinophils % (Manual) 0.0 D Basophils % 0.4 Basophils % (Manual) 1.0 D Myelocytes % (Man) 0 D Promyelocytes % (Man) 0 Blast Cells % (Manual) 0 Nucleated RBC % 0 Metamyelocytes 0 Hypochromia 0 Platelet Estimate Normal Polychromasia 0 Poikilocytosis 0 Anisocytosis 0 Microcytosis 0 Macrocytosis 0 PT with INR 11.80 INR 1.00 Sodium Potassium Chloride Carbon Dioxide Anion Gap BUN Creatinine Est GFR (CKD-EPI)AfAm Est GFR (CKD-EPI)NonAf Random Glucose Calcium Magnesium Total Bilirubin AST ALT Alkaline Phosphatase Total Protein Albumin COVID-19 (TATA) Not detected Fungus Stain Fungal Cult Result 2 01/17/20 01/17/20 07:11 09:00 WBC RBC Hgb Hct MCV MCH MCHC RDW Plt Count MPV Absolute Neuts (auto) Neutrophils % Neutrophils % (Manual) Band Neutrophils % Lymphocytes % Lymphocytes % (Manual) Monocytes % Monocytes % (Manual) Eosinophils % Eosinophils % (Manual) Basophils % Basophils % (Manual) Myelocytes % (Man) Promyelocytes % (Man) Blast Cells % (Manual) Nucleated RBC % Metamyelocytes Hypochromia Platelet Estimate Polychromasia Poikilocytosis Anisocytosis Microcytosis Macrocytosis PT with INR INR Sodium 142 Potassium 3.2 L Chloride 114 H Carbon Dioxide 22 Anion Gap 6 L BUN 5.2 L Creatinine 0.5 L Est GFR (CKD-EPI)AfAm 145.33 Est GFR (CKD-EPI)NonAf 125.39 Random Glucose 78 Calcium 7.4 L Magnesium 1.5 L Total Bilirubin 0.5 AST 14 L ALT 9 L Alkaline Phosphatase 68 Total Protein 4.9 L Albumin 2.2 L COVID-19 (TATA) Fungus Stain Inspector Filters Fungal Cult Result 2 Inspector Filters Active Medications Generic Name Dose Route Start Last Admin Trade Name Freq PRN Reason Stop Dose Admin Sodium Chloride 1,000 mls @ 125 mls/hr 01/16/20 16:45 01/17/20 09:33 Normal Saline - IV 125 mls/hr ASDIR DAVON Administration Famotidine/Sodium Chloride 20 mg in 50 mls @ 100 mls/hr 01/16/20 22:00 01/17/20 09:31 Pepcid 20 Mg Premixed Ivpb - IVPB 100 mls/hr BID DAVON Administration Piperacillin Sod/Tazobactam 50 mls @ 100 mls/hr 01/17/20 18:00 Sod 3.375 gm/ Dextrose IVPB Q8H-IV DAVON Protocol Morphine Sulfate 2 mg 01/16/20 22:27 01/17/20 09:30 Morphine Sulfate IVPUSH 2 mg Q6H PRN Administration PAIN LEVEL 6-10 Ondansetron HCl 4 mg 01/16/20 18:34 01/17/20 10:06 Zofran Injection IVPUSH 4 mg Q6H PRN Administration NAUSEA ASSESSMENT/PLAN: Abdominal pain: CT scan as noted with multiple findings: dilated small bowel loops with moderate circumferential wall thickening most pronounced at the distal ileum. findings suggestive of enteritis mostly likely infectious or inflammatory. possible partial obstruction as contrast visualized at the level of the descending colon. previously noted focus of fluid within the right lower pelvis thought to poss represent a small abscess is not significantly changed compared to the prior study. moderate ascites with mesenteric edema not significant changed. left adnexal cyst not sign. changed. rlq abscess moderate ascites dilated small bowel loops continue NPO, Iv antibiotics, monitor vital signs surgery follow up Hypomag: replete Hypokalemia: replete dvt prophy: SCDs Visit type - Emergency Visit Emergency Visit: Yes ED Registration Date: 01/16/20 Care time: The patient presented to the Emergency Department on the above date and was hospitalized for further evaluation of their emergent condition. - New Patient This patient is new to me today: Yes Date on this admission: 01/17/20 - Critical Care Critical Care patient: No - Discharge Referral Referred to [facility] Med P.C.: No
[2020-01-17] MEDS: PIPERACILLIN/TAZOB 3.375 GM 3.375 GM in DEXTROSE 5%-WATER - 50 ML IVPB SCH (17:38)
[2020-01-17] MEDS ORDERED: MAGNESIUM SULF 50% (8.12 MEQ/2 ML-1 GM VIAL) IVPB ONE (17:39)
[2020-01-17] MEDS ORDERED: MAGNESIUM SULFATE IN WATER 2 GM/50 ML IVPB IVPB ONE (17:45)
[2020-01-17] MEDS: KCL 10 MEQ IVPB 10 MEQ/100 ML INFUS.BAG IVPB SCH ×2 (18:42→22:20)
[2020-01-18] MEDS ORDERED: PIPERACILLIN/TAZOBACTAM 3.375 GM VIAL IVPB ONE ×3 (02:38→17:19)
[2020-01-18] MEDS ORDERED: DEXTROSE 5%-WATER - 50 ML IVPB ONE ×3 (02:38→17:19)
[2020-01-18] MEDS: PIPERACILLIN/TAZOB 3.375 GM 3.375 GM in DEXTROSE 5%-WATER - 50 ML IVPB SCH ×3 (02:40→17:33)
[2020-01-18] MEDS: SODIUM CHLORIDE 1,000 ML IV SCH (06:29)
[2020-01-18] MEDS: MORPHINE SULFATE 2 MG/ML VIAL IVPUSH PRN ×2 (09:26→23:59)
[2020-01-18] MEDS: FAMOTIDINE 20 MG/50 ML IVPB 20 MG/50 ML MG IVPB SCH ×2 (09:26→21:41)
--- NOTE | 2020-01-18 10:07 | PN ---
Progress Note (short form) - Note Progress Note: Surgery: Pt with persistent diarrhea. No nausea or emesis. Diarrhea loose no blood. Abd pain improved overall but still requiring IV pain medications. Vital Signs Period Temp Pulse Resp BP Sys/Gonzales Pulse Ox Last 24 Hr 96.9 F-98.5 F 51-72 20-20 86-128/45-66 98-100 GEN: A&0x3, NAD ABD: soft, slight distended, RLQ/mid abd tenderness to palpation with guarding. No rebound CBC, BMP 01/17/20 07:11 01/17/20 07:11 CT scan: no evidence of discrete collection, there is an area with loculated fluid in the pelvis which was seen on a previous CT scan. Thickened dilated SB near terminal ileum with mesenteric stranding edema. Microbiology 01/17/20 11:38 Stool Clostridioides difficile Antigen - Final No c diff 01/17/20 11:38 Stool Clostridioides difficile Toxin Assay - Final 01/16/20 15:15 Urine - Urine Clean Catch Urine Culture - Final NO GROWTH OBTAINED 01/14/20 13:40 Urine - Urine Clean Catch Urine Culture - Final NO GROWTH OBTAINED Stool cultures pending A/P: 34 yo female with abd pain to mostly RLQ/mid abd. No evidence of discrete collection/SB thickening with stranding. Most likely enteritis Recommend NPO Follow up stool cultures IV abx D/w Dunia. Johnathon <Bri Galan - Last Filed: 01/18/20 10:31> - Note Progress Note: Attending Surgeon: I personally saw and examined the patient. My examination reveals a patient with abdominal pain. I discussed the case with the surgical PA and agree with their findings and plan of care with any exceptions as noted. ~ Barrington Diego MD, FACS <Barrington Diego - Last Filed: 01/20/20 10:30>
[2020-01-18 11:17] LABS: BASO % 0.5 % (0-2.0); HEMATOCRIT 34.6 % (32.4-45.2); HEMOGLOBIN 11.7 GM/dL (10.7-15.3); LYMPH % 16.3 % (8-40); MCH 33.9 pg (25.7-33.7); MCHC 33.7 g/dl (32.0-36.0); MEAN CELL VOLUME 100.7 fl (80-96); MEAN PLT VOLUME 8.6 fl (7.5-11.1); MONO % 19.2 % (3.8-10.2); PLATELET COUNT 215 K/MM3 (134-434); RBC 3.44 M/mm3 (3.60-5.2); RDW 12.8 % (11.6-15.6); WHITE BLOOD COUNT 6.3 K/mm3 (4.0-10.0)
[2020-01-18 11:48] LABS: ALBUMIN 2.4 g/dl (3.4-5.0); BILIRUBIN,TOTAL 0.4 mg/dL (0.2-1); BLOOD UREA NITROGEN 5.7 mg/dL (7-18); CALCIUM 7.5 mg/dL (8.5-10.1); CREATININE 0.5 mg/dL (0.55-1.3); MAGNESIUM 1.6 mg/dL (1.8-2.4); POTASSIUM 4.2 mmol/L (3.5-5.1); TOT PROT 5.4 g/dl (6.4-8.2)
[2020-01-18 12:02] LABS: ANISOCYTOSIS 0; MACROCYTOSIS 0; PLATELET ESTIMATE NORMAL
--- NOTE | 2020-01-18 12:29 | PN ---
Progress Note, Physician History of Present Illness: c/o hunger minimal abd pain - Current Medication List Current Medications: Active Medications Sodium Chloride (Normal Saline -) 1,000 mls @ 125 mls/hr IV ASDIR DAVON Last Admin: 01/18/20 06:29 Dose: 125 mls/hr Documented by: Famotidine/Sodium Chloride (Pepcid 20 Mg Premixed Ivpb -) 20 mg in 50 mls @ 100 mls/hr IVPB BID DAVON Last Admin: 01/18/20 09:26 Dose: 100 mls/hr Documented by: Piperacillin Sod/Tazobactam (Sod 3.375 gm/ Dextrose) 50 mls @ 100 mls/hr IVPB Q8H-IV DAVON; Protocol Last Admin: 01/18/20 10:06 Dose: 100 mls/hr Documented by: Morphine Sulfate (Morphine Sulfate) 2 mg IVPUSH Q6H PRN PRN Reason: PAIN LEVEL 6-10 Last Admin: 01/18/20 09:26 Dose: 2 mg Documented by: Ondansetron HCl (Zofran Injection) 4 mg IVPUSH Q6H PRN PRN Reason: NAUSEA Last Admin: 01/17/20 10:06 Dose: 4 mg Documented by: - Objective Vital Signs: Vital Signs Temperature 98.5 F 01/18/20 09:31 Pulse Rate 70 01/18/20 09:31 Respiratory Rate 20 01/18/20 09:31 Blood Pressure 128/66 01/18/20 09:31 O2 Sat by Pulse Oximetry (%) 100 01/18/20 09:31 Constitutional: Yes: No Distress, Calm, Thin Cardiovascular: Yes: S1, S2 Respiratory: Yes: Regular, CTA Bilaterally Gastrointestinal: Yes: Normal Bowel Sounds, Soft Musculoskeletal: Yes: WNL Extremities: Yes: WNL Neurological: Yes: Alert, Oriented Psychiatric: Yes: Alert, Oriented Labs: CBC, BMP 01/18/20 10:40 01/18/20 10:40 INR, PTT INR 1.00 (0.83-1.09) 01/17/20 07:11 Assessment/Plan 35F w/ no pmh presents w/ complaint of 6days of severe cramping diffuse lower abdominal abd that has migrated to RLQ. Has associated nausea, vomiting, diarrhea.. sepsis int abd collection colitis abd pain plan await for all results continue abx
--- NOTE | 2020-01-18 13:20 | PN ---
Physical Exam: SUBJECTIVE: Patient seen and examined. she is upset because she cannot eat and feels that her lips and mouth are dry. POC reviewed with her. OBJECTIVE: start clinimax incentive spriometer ----- Patient is a 34 year old female with no significant past medical history. She presents to the ED on 01/16/2020 for severe cramping diffuse lower abdominal pain. Has associated nausea, vomiting. Has vomiting immediately after eating. Pt was seen at [facility] 2day prior with similiar RLQ abdominal pain, but declined admission d/t to the need to arrange childcare. imaging: abd/pelvis with contrast 01/17/2020: dilated small bowel loops with moderate circumferential wall thickening most pronounced at the distal ileum. findings suggestive of enteritis mostly likely infectious or inflammatory. possible partial obstruction as contrast visualized at the level of the descending colon. previously noted focus of fluid within the right lower pelvis thought to poss represent a small abscess is not significantly changed compared to the prior study. moderate ascites with mesenteric edema not significant changed. left adnexal cyst not sign. changed. Vital Signs Period Temp Pulse Resp BP Sys/Gonzales Pulse Ox Last 24 Hr 96.9 F-98.5 F 51-72 20-20 86-128/45-66 98-100 GENERAL: The patient is awake, alert, and fully oriented, in no acute distress. HEAD: Normal with no signs of trauma. EYES: PERRL, extraocular movements intact, sclera anicteric, conjunctiva clear. No ptosis. ENT: Ears normal, nares patent, oropharynx clear without exudates, moist mucous membranes. NECK: Trachea midline, full range of motion, supple. LUNGS: Breath sounds equal, clear to auscultation bilaterally, no wheezes HEART: Regular rate and rhythm ABDOMEN: Soft, mildly distended, nontender, normoactive bowel sounds EXTREMITIES: no edema. NEUROLOGICAL: Normal speech, gait not observed. PSYCH: Normal mood, normal affect. SKIN: Warm, dry, normal turgor, no rashes or lesions noted Laboratory Results - last 24 hr 01/18/20 01/18/20 10:40 10:40 WBC 6.3 RBC 3.44 L Hgb 11.7 Hct 34.6 MCV 100.7 H MCH 33.9 H MCHC 33.7 RDW 12.8 Plt Count 215 D MPV 8.6 Absolute Neuts (auto) 4.0 Neutrophils % 63.0 Neutrophils % (Manual) 59.0 Band Neutrophils % 0.0 Lymphocytes % 16.3 Lymphocytes % (Manual) 21.0 Monocytes % 19.2 H Monocytes % (Manual) 16 H Eosinophils % 1.0 Eosinophils % (Manual) 0.0 Basophils % 0.5 Basophils % (Manual) 0.0 Myelocytes % (Man) 0 Promyelocytes % (Man) 0 Blast Cells % (Manual) 0 Nucleated RBC % 0 Metamyelocytes 1 D Hypochromia 0 Platelet Estimate Normal Polychromasia 0 Poikilocytosis 0 Anisocytosis 0 Microcytosis 0 Macrocytosis 0 Sodium 140 Potassium 4.2 Chloride 110 H Carbon Dioxide 19 L Anion Gap 12 BUN 5.7 L Creatinine 0.5 L Est GFR (CKD-EPI)AfAm 145.33 Est GFR (CKD-EPI)NonAf 125.39 Random Glucose 61 L Calcium 7.5 L Magnesium 1.6 L Total Bilirubin 0.4 AST 17 ALT 12 L Alkaline Phosphatase 92 Total Protein 5.4 L Albumin 2.4 L Active Medications Generic Name Dose Route Start Last Admin Trade Name Freq PRN Reason Stop Dose Admin Famotidine/Sodium Chloride 20 mg in 50 mls @ 100 mls/hr 01/16/20 22:00 01/18/20 09:26 Pepcid 20 Mg Premixed Ivpb - IVPB 100 mls/hr BID DAVON Administration Piperacillin Sod/Tazobactam 50 mls @ 100 mls/hr 01/17/20 18:00 01/18/20 10:06 Sod 3.375 gm/ Dextrose IVPB 100 mls/hr Q8H-IV DAVON Administration Protocol Magnesium Sulfate 2 gm 01/18/20 12:44 Magnesium Sulfate IVPB 01/18/20 12:45 ONCE ONE Morphine Sulfate 2 mg 01/16/20 22:27 01/18/20 09:26 Morphine Sulfate IVPUSH 2 mg Q6H PRN Administration PAIN LEVEL 6-10 Ondansetron HCl 4 mg 01/16/20 18:34 01/17/20 10:06 Zofran Injection IVPUSH 4 mg Q6H PRN Administration NAUSEA ASSESSMENT/PLAN: Abdominal pain: CT scan as noted with multiple findings: dilated small bowel loops with moderate circumferential wall thickening most pronounced at the distal ileum. findings suggestive of enteritis mostly likely infectious or inflammatory. possible partial obstruction as contrast visualized at the level of the descending colon. previously noted focus of fluid within the right lower pelvis thought to poss represent a small abscess is not significantly changed compared to the prior study. moderate ascites with mesenteric edema not significant changed. left adnexal cyst not sign. changed. rlq abscess moderate ascites dilated small bowel loops continue NPO, Iv antibiotics, monitor vital signs start on clinimax for nutrition support surgery follow up Hypomag: resolved Hypokalemia: replete dvt prophy: SCDs Visit type - Emergency Visit Emergency Visit: Yes ED Registration Date: 01/16/20 Care time: The patient presented to the Emergency Department on the above date and was hospitalized for further evaluation of their emergent condition. - New Patient This patient is new to me today: No - Critical Care Critical Care patient: No - Discharge Referral Referred to [facility] Med P.C.: No
[2020-01-18] MEDS ORDERED: MAGNESIUM 2GM/50ML STERILE WATER IVPB IVPB ONE (13:30)
[2020-01-18] MEDS: AMINO ACIDS 4.25%/D5W 1,000 ML IV SCH (15:12)
[2020-01-18] MEDS: NICOTINE 14 MG/24 HOURS TOPICAL PATCH TD SCH (17:32)
[2020-01-18 21:03] VITALS: BMI 17.5
[2020-01-19] MEDS ORDERED: DEXTROSE 5%-WATER - 50 ML IVPB ONE ×2 (02:55→09:20)
[2020-01-19] MEDS ORDERED: PIPERACILLIN/TAZOBACTAM 3.375 GM VIAL IVPB ONE ×2 (02:55→09:20)
[2020-01-19] MEDS: PIPERACILLIN/TAZOB 3.375 GM 3.375 GM in DEXTROSE 5%-WATER - 50 ML IVPB SCH ×3 (03:01→18:44)
[2020-01-19] MEDS: AMINO ACIDS 4.25%/D5W 1,000 ML IV SCH ×2 (05:55→14:48)
--- NOTE | 2020-01-19 08:18 | PN ---
Progress Note (short form) - Note Progress Note: Surgery: Pt with improved diarrhea symptoms and abd pain overnight. Vital Signs Period Temp Pulse Resp BP Sys/Gonzales Pulse Ox Last 24 Hr 98.5 F-99.0 F 49-74 20-20 111-137/58-71 95-100 GEN: A&0x3 ABD: soft, slight distended, mild suprapubic tenderness. No rebound . Stool cultures negative to date A/P: 34 yo female with abd pain improved RLQ pain mostly suprapubic. No evidence of discrete collection/SB thickening with stranding. Most likely enteritis, diarrhea symptoms imrpoved Recommend to begin clears as tolerated IV abx as per ID, pt report as per Dr Gaitan, culture positive for gonorrhea D/w Br. Diego <Bri Galan - Last Filed: 01/19/20 17:05> - Note Progress Note: Attending Surgeon: I personally saw and examined the patient. My examination reveals a patient with abdominal pain. I discussed the case with the surgical PA and agree with their findings and plan of care with any exceptions as noted. ~ Barrington Diego MD, FACS <Barrington Diego - Last Filed: 01/20/20 10:24>
[2020-01-19 09:09] LABS: BASO % 0.4 % (0-2.0); EOS % 0.9 % (0-4.5); HEMATOCRIT 32.6 % (32.4-45.2); HEMOGLOBIN 11.1 GM/dL (10.7-15.3); LYMPH % 14.1 % (8-40); MCH 33.2 pg (25.7-33.7); MCHC 34.2 g/dl (32.0-36.0); MEAN CELL VOLUME 97.3 fl (80-96); MONO % 20.5 % (3.8-10.2); NEUT % 64.1 % (42.8-82.8); PLATELET COUNT 250 K/MM3 (134-434); RBC 3.35 M/mm3 (3.60-5.2); RDW 12.6 % (11.6-15.6); WHITE BLOOD COUNT 6.7 K/mm3 (4.0-10.0)
[2020-01-19] MEDS: NICOTINE 14 MG/24 HOURS TOPICAL PATCH TD SCH (09:40)
[2020-01-19 09:41] LABS: ALBUMIN 2.2 g/dl (3.4-5.0); BILIRUBIN,TOTAL 0.6 mg/dL (0.2-1); BLOOD UREA NITROGEN 7.8 mg/dL (7-18); CALCIUM 7.7 mg/dL (8.5-10.1); CREATININE 0.5 mg/dL (0.55-1.3); MAGNESIUM 1.4 mg/dL (1.8-2.4); POTASSIUM 3.1 mmol/L (3.5-5.1); TOT PROT 5.1 g/dl (6.4-8.2)
[2020-01-19] MEDS: FAMOTIDINE 20 MG/50 ML IVPB 20 MG/50 ML MG IVPB SCH ×2 (10:09→21:13)
[2020-01-19] MEDS ORDERED: MAGNESIUM SULF 50% (8.12 MEQ/2 ML-1 GM VIAL) IVPB ONE (10:49)
[2020-01-19] MEDS ORDERED: MAGNESIUM 1GM/D5W - 1 GM/100 ML IVPB IVPB ONE (11:15)
--- NOTE | 2020-01-19 11:17 | PN ---
Progress Note, Physician History of Present Illness: stable no new issues patient report for gonorrhoea has come back positive - Current Medication List Current Medications: Active Medications Famotidine/Sodium Chloride (Pepcid 20 Mg Premixed Ivpb -) 20 mg in 50 mls @ 100 mls/hr IVPB BID DAVON Last Admin: 01/19/20 10:09 Dose: 100 mls/hr Documented by: Piperacillin Sod/Tazobactam (Sod 3.375 gm/ Dextrose) 50 mls @ 100 mls/hr IVPB Q8H-IV DAVON; Protocol Last Admin: 01/19/20 09:40 Dose: 100 mls/hr Documented by: Amino Acids (Clinimix -) 1,000 mls @ 84 mls/hr IV Q12H DAVON Last Admin: 01/19/20 05:55 Dose: 84 mls/hr Documented by: Potassium Chloride (Potassium Chloride 10 Meq Premix Ivpb -) 10 meq in 100 mls @ 100 mls/hr IVPB Q60M DAVON Stop: 01/19/20 12:59 Magnesium Sulfate/Dextrose (Magnesium 1gm/D5w -) 1 gm in 100 mls @ 100 mls/hr IVPB ONCE ONE Stop: 01/19/20 12:14 Morphine Sulfate (Morphine Sulfate) 2 mg IVPUSH Q6H PRN PRN Reason: PAIN LEVEL 6-10 Last Admin: 01/18/20 23:59 Dose: 2 mg Documented by: Nicotine (Nicoderm Patch -) 14 mg TD DAILY [facility] Last Admin: 01/19/20 09:40 Dose: 14 mg Documented by: Ondansetron HCl (Zofran Injection) 4 mg IVPUSH Q6H PRN PRN Reason: NAUSEA Last Admin: 01/17/20 10:06 Dose: 4 mg Documented by: - Objective Vital Signs: Vital Signs Temperature 98.9 F 01/19/20 06:00 Pulse Rate 74 01/19/20 06:00 Respiratory Rate 20 01/19/20 06:00 Blood Pressure 111/58 L 01/19/20 06:00 O2 Sat by Pulse Oximetry (%) 95 01/19/20 06:00 Constitutional: Yes: Calm, Mild Distress Cardiovascular: Yes: S1, S2 Respiratory: Yes: Regular, CTA Bilaterally Gastrointestinal: Yes: Soft, Tenderness ...Rectal Exam: Yes: Deferred Neurological: Yes: Alert, Oriented Psychiatric: Yes: Alert, Oriented Labs: CBC, BMP 01/19/20 08:40 01/19/20 08:40 INR, PTT INR 1.00 (0.83-1.09) 01/17/20 07:11 Assessment/Plan 35F w/ no pmh presents w/ complaint of 6days of severe cramping diffuse lower abdominal abd that has migrated to RLQ. Has associated nausea, vomiting, diarrhea.. sepsis int abd collection colitis abd pain plan gonorrhoea results noted ceftriaxone 250 and zithromax 1000 mg 1 dose
[2020-01-19] MEDS: KCL 10 MEQ IVPB 10 MEQ/100 ML INFUS.BAG IVPB SCH ×2 (11:23→12:32)
[2020-01-19 11:30] LABS: ANISOCYTOSIS 0; MACROCYTOSIS 0; PLATELET ESTIMATE NORMAL
--- NOTE | 2020-01-19 12:08 | PN ---
Physical Exam: SUBJECTIVE: Patient seen and examined at the bedside. She is upset after i discussed the positive gonorrhea results. She does want me to contact her sexual partner. She is refusing HIV test. OBJECTIVE: received microblog that patient is + gonorrhea per lab 01/14/2020: discussed with ID, recommend ceftriaxone 250 and zithromax 1000 mg 1 dose. spoke to patient regarding results, she tells me she has one sexual partner and she will be contacting him so that he can be tested. she is refusing hiv test. ---- Patient is a 34 year old female with no significant past medical history. She presents to the ED on 01/16/2020 for severe cramping diffuse lower abdominal pain. Has associated nausea, vomiting. Has vomiting immediately after eating. Pt was seen at [facility] 2day prior with similiar RLQ abdominal pain, but declined admission d/t to the need to arrange childcare. she was found to have enteritis per imaging. She is being medically managed with NPO status, IV clinimax and Zosyn. imaging: abd/pelvis with contrast 01/17/2020: dilated small bowel loops with moderate circumferential wall thickening most pronounced at the distal ileum. findings suggestive of enteritis mostly likely infectious or inflammatory. possible partial obstruction as contrast visualized at the level of the descending colon. previously noted focus of fluid within the right lower pelvis thought to poss represent a small abscess is not significantly changed compared to the prior study. moderate ascites with mesenteric edema not significant changed. left adnexal cyst not sign. changed. Period Temp Pulse Resp BP Sys/Gonzales Pulse Ox Last 24 Hr 98.6 F-99.6 F 49-74 20-20 111-137/58-71 95-99 GENERAL: The patient is awake, alert, and fully oriented, in no acute distress. HEAD: Normal with no signs of trauma. EYES: PERRL, extraocular movements intact, sclera anicteric, conjunctiva clear. No ptosis. ENT: Ears normal, nares patent, oropharynx clear without exudates, moist mucous membranes. NECK: Trachea midline, full range of motion, supple. LUNGS: Breath sounds equal, clear to auscultation bilaterally, no wheezes HEART: Regular rate and rhythm ABDOMEN: Soft, mildly distended, nontender, normoactive bowel sounds EXTREMITIES: no edema. NEUROLOGICAL: Normal speech, gait not observed. PSYCH: Normal mood, normal affect. SKIN: Warm, dry, normal turgor, no rashes or lesions noted Laboratory Results - last 24 hr 01/19/20 01/19/20 08:40 08:40 WBC 6.7 RBC 3.35 L Hgb 11.1 Hct 32.6 MCV 97.3 H MCH 33.2 MCHC 34.2 RDW 12.6 Plt Count 250 MPV 8.0 Absolute Neuts (auto) 4.3 Neutrophils % 64.1 Neutrophils % (Manual) 53.5 Band Neutrophils % 0.0 Lymphocytes % 14.1 Lymphocytes % (Manual) 14.2 D Monocytes % 20.5 H Monocytes % (Manual) 25 H Eosinophils % 0.9 Eosinophils % (Manual) 3.0 D Basophils % 0.4 Basophils % (Manual) 1.0 D Myelocytes % (Man) 0 Promyelocytes % (Man) 0 Blast Cells % (Manual) 0 Nucleated RBC % 1 H Metamyelocytes 0 D Hypochromia 0 Platelet Estimate Normal Polychromasia 0 Poikilocytosis 0 Anisocytosis 0 Microcytosis 0 Macrocytosis 0 Sodium 140 Potassium 3.1 L Chloride 109 H Carbon Dioxide 22 Anion Gap 8 BUN 7.8 Creatinine 0.5 L Est GFR (CKD-EPI)AfAm 145.33 Est GFR (CKD-EPI)NonAf 125.39 Random Glucose 108 H Calcium 7.7 L Magnesium 1.4 L Total Bilirubin 0.6 AST 14 L ALT 9 L Alkaline Phosphatase 84 Total Protein 5.1 L Albumin 2.2 L Active Medications Generic Name Dose Route Start Last Admin Trade Name Freq PRN Reason Stop Dose Admin Famotidine/Sodium Chloride 20 mg in 50 mls @ 100 mls/hr 01/16/20 22:00 01/19/20 10:09 Pepcid 20 Mg Premixed Ivpb - IVPB 100 mls/hr BID DAVON Administration Piperacillin Sod/Tazobactam 50 mls @ 100 mls/hr 01/17/20 18:00 01/19/20 09:40 Sod 3.375 gm/ Dextrose IVPB 100 mls/hr Q8H-IV DAVON Administration Protocol Amino Acids 1,000 mls @ 84 mls/hr 01/18/20 14:00 01/19/20 05:55 Clinimix - IV 84 mls/hr Q12H DAVON Administration Potassium Chloride 10 meq in 100 mls @ 100 mls/hr 01/19/20 11:00 01/19/20 11:23 Potassium Chloride 10 Meq Premix Ivpb - IVPB 01/19/20 12:59 100 mls/hr Q60M DAVON Administration Magnesium Sulfate/Dextrose 1 gm in 100 mls @ 100 mls/hr 01/19/20 11:15 Magnesium 1gm/D5w - IVPB 01/19/20 12:14 ONCE ONE Morphine Sulfate 2 mg 01/16/20 22:27 01/18/20 23:59 Morphine Sulfate IVPUSH 2 mg Q6H PRN Administration PAIN LEVEL 6-10 Nicotine 14 mg 01/18/20 17:15 01/19/20 09:40 Nicoderm Patch - TD 14 mg DAILY DAVON Administration Ondansetron HCl 4 mg 01/16/20 18:34 01/17/20 10:06 Zofran Injection IVPUSH 4 mg Q6H PRN Administration NAUSEA ASSESSMENT/PLAN: Problem List - Problems (1) Gonorrhea Assessment/Plan: Per labs dated 01/14/2020 (on last ED visit) patient was swabbed and now positive for gonorrhea Per guidelines and after discussion with ID, will treat with one dose of Ce ftriaxone 250mg x 1 IV and Azithromycin 1000mg x 1 IV. Recommend that patient follow up with her [facility] MANAGER as an outpatient Code(s): A54.9 - GONOCOCCAL INFECTION, UNSPECIFIED (2) Abdominal pain Assessment/Plan: CT scan as noted with multiple findings: dilated small bowel loops with moderate circumferential wall thickening most pronounced at the distal ileum. findings suggestive of enteritis mostly likely infectious or inflammatory. possible partial obstruction as contrast visualized at the level of the descending colon. previously noted focus of fluid within the right lower pelvis thought to poss represent a small abscess is not significantly changed compared to the prior study. moderate ascites with mesenteric edema not significant changed. left adnexal cyst not sign. changed. rlq abscess moderate ascites dilated small bowel loops continue NPO, Iv antibiotics, monitor vital signs start on clinimax for nutrition support surgery follow up Code(s): R10.9 - UNSPECIFIED ABDOMINAL PAIN Qualifiers: Abdominal location: right lower quadrant Qualified Code(s): R10.31 - Right lower quadrant pain (3) Enteritis Code(s): K52.9 - NONINFECTIVE GASTROENTERITIS AND COLITIS, UNSPECIFIED (4) DVT prophylaxis Code(s): Z29.9 - ENCOUNTER FOR PROPHYLACTIC MEASURES, UNSPECIFIED Visit type - Emergency Visit Emergency Visit: Yes ED Registration Date: 01/16/20 Care time: The patient presented to the Emergency Department on the above date and was hospitalized for further evaluation of their emergent condition. - New Patient This patient is new to me today: No - Critical Care Critical Care patient: No - Discharge Referral Referred to [facility] Med P.C.: No
[2020-01-19] MEDS ORDERED: CEFTRIAXONE 250 MG in DEXTROSE 5%-WATER - 50 ML IVPB ONE (13:00)
[2020-01-19] MEDS ORDERED: DEXTROSE 5% IVPB ONE (15:00)
[2020-01-19] MEDS ORDERED: AZITHROMYCIN IVPB ONE (15:00)
[2020-01-19] MEDS ORDERED: WATER IVPB ONE (15:00)
[2020-01-19] MEDS: ONDANSETRON 4 MG/2 ML VIAL IVPUSH PRN (17:26)
[2020-01-20] MEDS ORDERED: DEXTROSE 5%-WATER - 50 ML IVPB ONE ×3 (00:31→17:33)
[2020-01-20] MEDS ORDERED: PIPERACILLIN/TAZOBACTAM 3.375 GM VIAL IVPB ONE ×3 (00:31→17:33)
[2020-01-20] MEDS: PIPERACILLIN/TAZOB 3.375 GM 3.375 GM in DEXTROSE 5%-WATER - 50 ML IVPB SCH ×3 (01:05→17:40)
[2020-01-20] MEDS: AMINO ACIDS 4.25%/D5W 1,000 ML IV SCH ×2 (02:46→14:52)
[2020-01-20 08:44] LABS: BASO % 0.3 % (0-2.0); EOS % 1.5 % (0-4.5); HEMATOCRIT 33.9 % (32.4-45.2); HEMOGLOBIN 11.4 GM/dL (10.7-15.3); LYMPH % 16.2 % (8-40); MCHC 33.6 g/dl (32.0-36.0); MEAN CELL VOLUME 98.2 fl (80-96); MEAN PLT VOLUME 8.8 fl (7.5-11.1); MONO % 18.5 % (3.8-10.2); NEUT % 63.5 % (42.8-82.8); PLATELET COUNT 292 K/MM3 (134-434); RBC 3.45 M/mm3 (3.60-5.2); RDW 12.8 % (11.6-15.6); WHITE BLOOD COUNT 6.9 K/mm3 (4.0-10.0)
[2020-01-20] MEDS: NICOTINE 14 MG/24 HOURS TOPICAL PATCH TD SCH (09:08)
[2020-01-20] MEDS: FAMOTIDINE 20 MG/50 ML IVPB 20 MG/50 ML MG IVPB SCH ×2 (09:08→21:32)
[2020-01-20 09:25] LABS: ALBUMIN 2.3 g/dl (3.4-5.0); BILIRUBIN,TOTAL 0.4 mg/dL (0.2-1); BLOOD UREA NITROGEN 5.7 mg/dL (7-18); CALCIUM 7.7 mg/dL (8.5-10.1); CREATININE 0.6 mg/dL (0.55-1.3); MAGNESIUM 1.4 mg/dL (1.8-2.4); POTASSIUM 3.3 mmol/L (3.5-5.1); TOT PROT 5.6 g/dl (6.4-8.2)
--- NOTE | 2020-01-20 10:46 | PN ---
Physical Exam: SUBJECTIVE: Patient seen and examined. ambulating in room, denies abdominal pain. feels better today. OBJECTIVE: Patient is a 34 year old female with no significant past medical history. She presents to the ED on 01/16/2020 for severe cramping diffuse lower abdominal pain. Has associated nausea, vomiting. Has vomiting immediately after eating. Pt was seen at [facility] 2day prior with similiar RLQ abdominal pain, but declined admission d/t to the need to arrange childcare. she was found to have enteritis per imaging. She was medically managed with NPO status, IV clinimax and Zosyn. today 01/19 started on clear liquid diet. imaging: abd/pelvis with contrast 01/17/2020: dilated small bowel loops with moderate circumferential wall thickening most pronounced at the distal ileum. findings suggestive of enteritis mostly likely infectious or inflammatory. possible partial obstruction as contrast visualized at the level of the descending colon. previously noted focus of fluid within the right lower pelvis thought to poss represent a small abscess is not significantly changed compared to the prior study. moderate ascites with mesenteric edema not significant changed. left adnexal cyst not sign. changed. Vital Signs Period Temp Pulse Resp BP Sys/Gonzales Pulse Ox Last 24 Hr 98.2 F-99.2 F 55-74 20-20 94-121/49-70 100-100 GENERAL: The patient is awake, alert, and fully oriented, in no acute distress. HEAD: Normal with no signs of trauma. EYES: PERRL, extraocular movements intact, sclera anicteric, conjunctiva clear. No ptosis. ENT: Ears normal, nares patent, oropharynx clear without exudates, moist mucous membranes. NECK: Trachea midline, full range of motion, supple. LUNGS: Breath sounds equal, clear to auscultation bilaterally, no wheezes HEART: Regular rate and rhythm ABDOMEN: Soft, mildly distended, nontender, normoactive bowel sounds EXTREMITIES: no edema. NEUROLOGICAL: Normal speech, gait not observed. PSYCH: Normal mood, normal affect. SKIN: Warm, dry, normal turgor, no rashes or lesions noted Laboratory Results - last 24 hr 01/17/20 01/19/20 01/20/20 09:00 08:40 07:25 WBC 6.9 RBC 3.45 L Hgb 11.4 Hct 33.9 MCV 98.2 H MCH 33.0 MCHC 33.6 RDW 12.8 Plt Count 292 MPV 8.8 Absolute Neuts (auto) 4.4 Neutrophils % 63.5 Neutrophils % (Manual) 53.5 Band Neutrophils % 0.0 Lymphocytes % 16.2 Lymphocytes % (Manual) 14.2 D Monocytes % 18.5 H Monocytes % (Manual) 25 H Eosinophils % 1.5 Eosinophils % (Manual) 3.0 D Basophils % 0.3 Basophils % (Manual) 1.0 D Myelocytes % (Man) 0 Promyelocytes % (Man) 0 Blast Cells % (Manual) 0 Nucleated RBC % 1 H 0 Metamyelocytes 0 D Hypochromia 0 Platelet Estimate Normal Polychromasia 0 Poikilocytosis 0 Anisocytosis 0 Microcytosis 0 Macrocytosis 0 Sodium Potassium Chloride Carbon Dioxide Anion Gap BUN Creatinine Est GFR (CKD-EPI)AfAm Est GFR (CKD-EPI)NonAf Random Glucose Calcium Magnesium Total Bilirubin AST ALT Alkaline Phosphatase Total Protein Albumin Stool O & P Wet [place] & P Permanent Slide Final report 01/20/20 07:25 WBC RBC Hgb Hct MCV MCH MCHC RDW Plt Count MPV Absolute Neuts (auto) Neutrophils % Neutrophils % (Manual) Band Neutrophils % Lymphocytes % Lymphocytes % (Manual) Monocytes % Monocytes % (Manual) Eosinophils % Eosinophils % (Manual) Basophils % Basophils % (Manual) Myelocytes % (Man) Promyelocytes % (Man) Blast Cells % (Manual) Nucleated RBC % Metamyelocytes Hypochromia Platelet Estimate Polychromasia Poikilocytosis Anisocytosis Microcytosis Macrocytosis Sodium 141 Potassium 3.3 L Chloride 110 H Carbon Dioxide 24 Anion Gap 7 L BUN 5.7 L Creatinine 0.6 Est GFR (CKD-EPI)AfAm 136.87 Est GFR (CKD-EPI)NonAf 118.09 Random Glucose 94 Calcium 7.7 L Magnesium 1.4 L Total Bilirubin 0.4 AST 21 ALT 12 L Alkaline Phosphatase 106 Total Protein 5.6 L Albumin 2.3 L Stool O & P Wet [place] P Permanent Slide Active Medications Generic Name Dose Route Start Last Admin Trade Name Freq PRN Reason Stop Dose Admin Famotidine/Sodium Chloride 20 mg in 50 mls @ 100 mls/hr 01/16/20 22:00 01/20/20 09:08 Pepcid 20 Mg Premixed Ivpb - IVPB 100 mls/hr BID DAVON Administration Piperacillin Sod/Tazobactam 50 mls @ 100 mls/hr 01/17/20 18:00 01/20/20 01:05 Sod 3.375 gm/ Dextrose IVPB 100 mls/hr Q8H-IV DAVON Administration Protocol Amino Acids 1,000 mls @ 84 mls/hr 01/18/20 14:00 01/20/20 02:46 Clinimix - IV 84 mls/hr Q12H DAVON Administration Morphine Sulfate 2 mg 01/16/20 22:27 01/18/20 23:59 Morphine Sulfate IVPUSH 2 mg Q6H PRN Administration PAIN LEVEL 6-10 Nicotine 14 mg 01/18/20 17:15 01/20/20 09:08 Nicoderm Patch - TD 14 mg DAILY DAVON Administration Ondansetron HCl 4 mg 01/16/20 18:34 01/19/20 17:26 Zofran Injection IVPUSH 4 mg Q6H PRN Administration NAUSEA ASSESSMENT/PLAN: Problem List - Problems (1) Gonorrhea Assessment/Plan: Per labs dated 01/14/2020 (on last ED visit) patient was swabbed and positive for gonorrhea Per guidelines and after discussion with ID, will treated on 01/18 with one dose of Ceftriaxone 250mg x 1 IV and Azithromycin 1000mg x 1 IV. Recommend that patient follow up with her [employer]MENT TRA[employer] R[employer]TER as an outpatient Patient declines HIV testing Code(s): A54.9 - GONOCOCCAL INFECTION, UNSPECIFIED (2) Abdominal pain Assessment/Plan: CT scan as noted with multiple findings: dilated small bowel loops with moderate circumferential wall thickening most pronounced at the distal ileum. findings suggestive of enteritis mostly likely infectious or inflammatory. possible partial obstruction as contrast visualized at the level of the descending colon. previously noted focus of fluid within the right lower pelvis thought to poss represent a small abscess is not significantly changed compared to the prior study. moderate ascites with mesenteric edema not significant changed. left adnexal cyst not sign. changed. rlq abscess Ct with concern for possible ruptured appendicitis. moderate ascites dilated small bowel loops on clears, Iv antibiotics, monitor vital signs stop clinimax since on clears surgery follow up Code(s): R10.9 - UNSPECIFIED ABDOMINAL PAIN Qualifiers: Abdominal location: right lower quadrant Qualified Code(s): R10.31 - Right lower quadrant pain (3) Enteritis Assessment/Plan: on IV Zosyn, started on clears surgery following Code(s): K52.9 - NONINFECTIVE GASTROENTERITIS AND COLITIS, UNSPECIFIED (4) DVT prophylaxis Assessment/Plan: SCDs, ambulation Code(s): Z29.9 - ENCOUNTER FOR PROPHYLACTIC MEASURES, UNSPECIFIED Visit type - Emergency Visit Emergency Visit: Yes ED Registration Date: 01/16/20 Care time: The patient presented to the Emergency Department on the above date and was hospitalized for further evaluation of their emergent condition. - New Patient This patient is new to me today: No - Critical Care Critical Care patient: No - Discharge Referral Referred to [facility] Med P.C.: No
--- NOTE | 2020-01-20 12:01 | PN ---
Progress Note, Physician - Current Medication List Current Medications: Active Medications Famotidine/Sodium Chloride (Pepcid 20 Mg Premixed Ivpb -) 20 mg in 50 mls @ 100 mls/hr IVPB BID DAVON Last Admin: 01/20/20 09:08 Dose: 100 mls/hr Documented by: Piperacillin Sod/Tazobactam (Sod 3.375 gm/ Dextrose) 50 mls @ 100 mls/hr IVPB Q8H-IV DAVON; Protocol Last Admin: 01/20/20 09:30 Dose: 100 mls/hr Documented by: Amino Acids (Clinimix -) 1,000 mls @ 84 mls/hr IV Q12H DAVON Last Admin: 01/20/20 02:46 Dose: 84 mls/hr Documented by: Morphine Sulfate (Morphine Sulfate) 2 mg IVPUSH Q6H PRN PRN Reason: PAIN LEVEL 6-10 Last Admin: 01/18/20 23:59 Dose: 2 mg Documented by: Nicotine (Nicoderm Patch -) 14 mg TD DAILY [facility] Last Admin: 01/20/20 09:08 Dose: 14 mg Documented by: Ondansetron HCl (Zofran Injection) 4 mg IVPUSH Q6H PRN PRN Reason: NAUSEA Last Admin: 01/19/20 17:26 Dose: 4 mg Documented by: - Objective Vital Signs: Vital Signs Temperature 99.2 F 01/20/20 06:00 Pulse Rate 55 L 01/20/20 06:00 Respiratory Rate 20 01/20/20 06:00 Blood Pressure 94/49 L 01/20/20 06:00 O2 Sat by Pulse Oximetry (%) 100 01/20/20 06:00 Labs: CBC, BMP 01/20/20 07:25 01/20/20 07:25 INR, PTT INR 1.00 (0.83-1.09) 01/17/20 07:11
--- NOTE | 2020-01-20 13:07 | PN ---
Progress Note (short form) - Note Progress Note: Pt seen and examined. Reports she is feeling well. No issues overnight. Has not had any PO. Has been oob without issue. Still having loose bowel movements. Voiding without issue. Denies cp/sob, n/v/d. Vital Signs Temp 99.2 F 01/20/20 06:00 Pulse 55 L 01/20/20 06:00 Resp 20 01/20/20 06:00 BP 94/49 L 01/20/20 06:00 Pulse Ox 100 01/20/20 06:00 Intake & Output 01/19/20 01/20/20 01/20/20 23:59 11:59 23:59 Intake Total 1836 638 Balance 1836 638 Intake: IV 836 588 CLINIMIX 836 588 IVPB 1000 50 Other: Voiding Method Toilet Toilet # Unmeasured Voids Void 1 Bowel Movement No No CBC, BMP 01/20/20 07:25 01/20/20 07:25 Gen: awake, alert, nad Resp: unlaboreed on RA Abdo: distended (stable from prior), minimal ttp in suprapubic region, + hypoactive bowel sounds. A/P: 35 y/o F w/ no significant PMHx a/w abdo pain. Ct with concern for possible ruptured appendicitis. No evidence of discrete collection/SB thickening with stranding. Most likely enteritis, diarrhea symptoms slowly improving +gonorrhea, abdominal distention possibly secondary to PID? No acute surgical intervention Clears ordered, advance as tolerated. IV abx as per ID Please call with any questions or concerns D/w Br. Diego <Germain Hanks - Last Filed: 01/20/20 13:08> - Note Progress Note: Attending Surgeon: I personally saw and examined the patient. My examination reveals a patient with abdominal pain. I discussed the case with the surgical PA and agree with their findings and plan of care with any exceptions as noted. ~ Barrington Diego MD, FACS <Barrington Diego - Last Filed: 02/07/20 08:31>
[2020-01-21] MEDS ORDERED: PIPERACILLIN/TAZOBACTAM 3.375 GM VIAL IVPB ONE ×2 (00:20→09:13)
[2020-01-21] MEDS: PIPERACILLIN/TAZOB 3.375 GM 3.375 GM in DEXTROSE 5%-WATER - 50 ML IVPB SCH ×2 (01:02→09:21)
[2020-01-21] MEDS ORDERED: DEXTROSE 5%-WATER - 50 ML IVPB ONE (09:14)
[2020-01-21] MEDS: NICOTINE 14 MG/24 HOURS TOPICAL PATCH TD SCH (09:22)
[2020-01-21] MEDS: FAMOTIDINE 20 MG/50 ML IVPB 20 MG/50 ML MG IVPB SCH (09:58)
[2020-01-21 10:06] VITALS: BP 113/62; PULSE 50; TEMP 98.8
--- NOTE | 2020-01-21 11:40 | PN ---
Progress Note, Physician - Current Medication List Current Medications: Active Medications Famotidine/Sodium Chloride (Pepcid 20 Mg Premixed Ivpb -) 20 mg in 50 mls @ 100 mls/hr IVPB BID DAVON Last Admin: 01/21/20 09:58 Dose: 100 mls/hr Documented by: Piperacillin Sod/Tazobactam (Sod 3.375 gm/ Dextrose) 50 mls @ 100 mls/hr IVPB Q8H-IV DAVON; Protocol Last Admin: 01/21/20 09:21 Dose: 100 mls/hr Documented by: Morphine Sulfate (Morphine Sulfate) 2 mg IVPUSH Q6H PRN PRN Reason: PAIN LEVEL 6-10 Last Admin: 01/18/20 23:59 Dose: 2 mg Documented by: Nicotine (Nicoderm Patch -) 14 mg TD DAILY DAVON Last Admin: 01/21/20 09:22 Dose: 14 mg Documented by: Ondansetron HCl (Zofran Injection) 4 mg IVPUSH Q6H PRN PRN Reason: NAUSEA Last Admin: 01/19/20 17:26 Dose: 4 mg Documented by: - Objective Vital Signs: Vital Signs Temperature 98.8 F 01/21/20 10:00 Pulse Rate 50 L 01/21/20 10:00 Respiratory Rate 20 01/21/20 10:00 Blood Pressure 113/62 01/21/20 10:00 O2 Sat by Pulse Oximetry (%) 99 01/21/20 10:00 Labs: CBC, BMP 01/20/20 07:25 01/20/20 07:25 INR, PTT INR 1.00 (0.83-1.09) 01/17/20 07:11
[2020-01-21 12:22] LABS: BASO % 0.9 % (0-2.0); EOS % 1.7 % (0-4.5); HEMATOCRIT 35.3 % (32.4-45.2); HEMOGLOBIN 11.9 GM/dL (10.7-15.3); LYMPH % 22.8 % (8-40); MCHC 33.7 g/dl (32.0-36.0); MEAN PLT VOLUME 8.1 fl (7.5-11.1); MONO % 13.3 % (3.8-10.2); NEUT % 61.3 % (42.8-82.8); PLATELET COUNT 348 K/MM3 (134-434); RDW 12.8 % (11.6-15.6); WHITE BLOOD COUNT 7.3 K/mm3 (4.0-10.0)
[2020-01-21 13:00] LABS: ALBUMIN 2.7 g/dl (3.4-5.0); BILIRUBIN,TOTAL 0.3 mg/dL (0.2-1); BLOOD UREA NITROGEN 4.8 mg/dL (7-18); CALCIUM 8.2 mg/dL (8.5-10.1); CREATININE 0.6 mg/dL (0.55-1.3); MAGNESIUM 1.4 mg/dL (1.8-2.4); POTASSIUM 3.3 mmol/L (3.5-5.1); TOT PROT 6.1 g/dl (6.4-8.2)
--- NOTE | 2020-01-21 13:02 | DS ---
Physical Exam: SUBJECTIVE: Patient seen and examined, denies abd pain, n/v, pt noted to be on clears. denies diarrhea pt reports she has been eating food, family has been bringing her, pt requesting to be discharged. explained to pt, labs have not been drawn and pending results will come and talk to her received microblog from nurse, pt wanting to sign out AMA, not waiting for labs, called ID to switch PO abt, called floor, pt had already left. Augmentin sent to pharmacy, will leave message OBJECTIVE: Vital Signs Period Temp Pulse Resp BP Sys/Gonzales Pulse Ox Last 24 Hr 98.6 F-99.1 F 50-58 20-20 111-129/62-71 97-100 PHYSICAL EXAM GENERAL: The patient is awake, alert, and fully oriented, in no acute distress. HEAD: Normal with no signs of trauma. EYES: PERRL, extraocular movements intact, sclera anicteric, conjunctiva clear. ENT: Ears normal, nares patent, oropharynx clear without exudates, moist mucous membranes. NECK: Trachea midline, full range of motion, supple. LUNGS: Breath sounds equal, clear to auscultation bilaterally, no wheezes, no crackles, no accessory muscle use. HEART: Regular rate and rhythm, S1, S2 without murmur, rub or gallop. ABDOMEN: Soft, nontender, nondistended, normoactive bowel sounds, no guarding, no rebound, no hepatosplenomegaly, no masses. EXTREMITIES: 2+ pulses, warm, well-perfused, no edema. NEUROLOGICAL: Cranial nerves II through XII grossly intact. Normal speech, gait not observed. PSYCH: Normal mood, normal affect. SKIN: Warm, dry, normal turgor, no rashes or lesions noted. LABS Laboratory Results - last 24 hr 01/21/20 01/21/20 11:55 11:55 WBC 7.3 RBC 3.60 Hgb 11.9 Hct 35.3 MCV 98.0 H MCH 33.0 MCHC 33.7 RDW 12.8 Plt Count 348 MPV 8.1 Absolute Neuts (auto) 4.5 Neutrophils % 61.3 Lymphocytes % 22.8 D Monocytes % 13.3 H Eosinophils % 1.7 Basophils % 0.9 Nucleated RBC % 0 Sodium 140 Potassium 3.3 L Chloride 108 H Carbon Dioxide 26 Anion Gap 7 L BUN 4.8 L Creatinine 0.6 Est GFR (CKD-EPI)AfAm 136.87 Est GFR (CKD-EPI)NonAf 118.09 Random Glucose 93 Calcium 8.2 L Magnesium 1.4 L Total Bilirubin 0.3 AST 25 ALT 16 Alkaline Phosphatase 144 H Total Protein 6.1 L Albumin 2.7 L HOSPITAL COURSE: Date of Admission:01/16/20 Date of Discharge: 01/21/20 Problem List - Problems (1) Gonorrhea Assessment/Plan: Per labs dated 01/14/2020 (on last ED visit) patient was swabbed and now positive for gonorrhea Per guidelines and after discussion with ID, will treat with one dose of Ceftriaxone 250mg x 1 IV and Azithromycin 1000mg x 1 IV. 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 findings suggestive of enteritis mostly likely infectious or inflammatory. possible partial obstruction as contrast visualized at the level of the descending colon. previously noted focus of fluid within the right lower pelvis thought to poss represent a small abscess is not significantly changed compared to the prior study. moderate ascites with mesenteric edema not significant changed. left adnexal cyst not sign. changed. rlq abscess dilated small bowel loops -tolerating clears, -diet adv- pt signed out AMA -augmentin sent to pharmacy Code(s): R10.9 - UNSPECIFIED ABDOMINAL PAIN Qualifiers: Abdominal location: right lower quadrant Qualified Code(s): R10.31 - Right lower quadrant pain (3) Enteritis Code(s): K52.9 - NONINFECTIVE GASTROENTERITIS AND COLITIS, UNSPECIFIED (4) Hypomagnesia -mag level 1.4 01/19 -labs for today pending -pt signed out AMA (5) DVT prophylaxis Code(s): Z29.9 - ENCOUNTER FOR PROPHYLACTIC MEASURES, UNSPECIFIED Minutes to complete discharge: 15 Discharge Summary Problems reviewed: Yes Reason For Visit: COLITIS ENTERITIS INTRA ABD ABCESS Current Active Problems Abdominal pain (Acute) Colitis (Acute) DVT prophylaxis (Acute) Enteritis (Acute) Gonorrhea (Acute) Intra-abdominal abscess (Acute) Condition: Unchanged/Unknown - Instructions Diet, Activity, Other Instructions: low cholesterol, low fat diet Disposition: AGAINST MEDICAL ADVICE - Home Medications Comprehensive Discharge Medication List: Ambulatory Orders NK [No Known Home Medication] 01/16/20 This patient is new to me today: Yes Date on this admission: 01/21/20 Emergency Visit: Yes ED Registration Date: 01/16/20 Care time: The patient presented to the Emergency Department on the above date and was hospitalized for further evaluation of their emergent condition. Critical Care patient: No - Discharge Referral Referred to [facility] Med P.C.: No
== END 2020-01-21 13:32 | disposition left against medical advice (07) | DRG 724 ==
LOC: JER 12:53 → JERBED 18:42 → J6S 01-17 01:20
PROVIDERS: ADMIT Internal Medicine; ATTEND Nurse Practitioner Family
DX: A54.9 Gonococcal infection, unspecified (principal); R00.0 Tachycardia, unspecified; E88.09 Other disorders of plasma-protein metabolism, not elsewhere classified; Z68.1 Body mass index [BMI] 19.9 or less, adult; R11.2 Nausea with vomiting, unspecified; K52.9 Noninfective gastroenteritis and colitis, unspecified; R18.8 Other ascites; K56.609 Unspecified intestinal obstruction, unspecified as to partial versus complete obstruction; K65.1 Peritoneal abscess; E46 Unspecified protein-calorie malnutrition; N17.9 Acute kidney failure, unspecified; E83.42 Hypomagnesemia; E87.6 Hypokalemia; E27.8 Other specified disorders of adrenal gland
CPT/HCPCS: 36415; 71046-TC-FY; 74177-TC; 80053; 81003; 83605; 83735; 84703; 85025; 85610; 86850; 86900; 86901; 87045; 87046; 87086; 87177; 87209; 87324; 87449; 93005; 93010; 99285-25; J0131; Q9967; U0003